=== PATIENT | female | born 1970 | race Caucasian/White ===

== ENCOUNTER → 2019-11-19 08:56 | Outpatient (CLI) | payer OTHER, SELFPAY ==
[2019-11-17 14:21] VITALS: BMI 22.7
[2019-11-19 09:00] LABS: Bacteria 0 SEEN /hpf (None Seen); Mucous, Urine 0 SEEN /hpf (<or=2+); Red Blood Cells-Urine 0 SEEN /hpf (0-5); White Blood Cells 0 SEEN /hpf (0-5)
[2019-11-19 12:24] LABS: Absolute Lymphocyte Count 3.34 X10^3/uL (0.83-4.51); Absolute Neutrophil Count 6.9 X10^3/uL (2.0-7.7); Basophil# 0.07 X10^3/uL; Basophil% 0.6 % (0-1); Eosinophil# 0.13 X10^3/uL; Eosinophils% 1.2 % (0-5); Hematocrit 44.3 % (37-47); Lymphocyte # 3.34 X10^3/ul (4.0); Mean Corp Hgb Conc 31.6 g/dL (32-36); Mean Corpuscular Hgb 27.7 pg (27.0-32.0); Mean Corpuscular Volume 87.5 fL (81-99); Mean Platelet Vol. 11.3 fl (6.2-12.0); Monocyte# 0.64 X10^3/uL; Monocyte% 5.7 % (0-10); NRBC Flagged by Analyzer 0 % (0-5); Neutrophil # 6.93 X10^3/uL (2.7-7.7); Neutrophil % 62.2 % (47-70); Platelet Count 342 K/mm3 (150-450); RBC Distribution Width CV 13.5 % (11.6-14.6); RBC Distribution Width SD 43.3 fl (35.1-43.9); Red Blood Count 5.06 M/mm3 (4.2-5.4); White Blood Count 11.1 K/mm3 (4.4-11.0)
[2019-11-19 12:28] LABS: Color, Urine Yellow (Yellow); Glucose, Dipstick Normal (Normal); Ketone-Dipstick Negative (Negative); Leukocyte Esterase-Dipstick Negative /ul (Negative); Nitrite-Dipstick Negative (Negative); Occult Blood-Urine Negative /ul (Negative); Protein-Dipstick Negative (Negative); Urine Bilirubin Dipstick Negative (Negative); Urine Clarity Sl. Cloudy (Clear); Urine Urobilinogen Normal (Normal)
[2019-11-19 12:44] LABS: AST(SGOT) 13 U/L (15-37); Alanine Aminotransfer ALT/SGPT 23 U/L (13-56); Albumin, Serum 3.6 g/dL (3.2-5.0); Alkaline Phosphatase 70 U/L (45-117); Anion Gap 4 (5-15); BUN 10 mg/dL (7-18); BUN/Creat Ratio 14.3 RATIO (10-20); Calcium,Total 8.5 mg/dL (8.5-10.1); Chloride 107 mmol/L (98-107); EST Glomerular Filtration Rate 94 mL/min (>60); Est Glom Filt Rate - Afr Amer 114 mL/min (>60); Globulin 3.5 g/dL (2.2-4.2); Glucose 82 mg/dL (74-106); Potassium 3.9 mmol/L (3.5-5.1); Protein, Total 7.1 g/dL (6.4-8.2); Sodium Level 138 mmol/L (136-145)
[2019-11-19 12:54] LABS: Squamous Epithelial Cells - UA 0-5 SEEN /hpf (5-10)
== END ==
LOC: BIMLAB 08:58
PROVIDERS: PCP Internal Medicine; Referring Provider Internal Medicine; Visit Provider Internal Medicine
DX: N32.89 Other specified disorders of bladder (principal)
CPT/HCPCS: 36415; 80053; 81001; 85025

== ENCOUNTER → 2019-11-23 10:19 | Outpatient (CLI) | payer OTHER, SELFPAY ==
[2019-11-17 14:21] VITALS: BMI 22.7
--- NOTE | 2019-11-23 10:20 | US_ITS ---
STUDY: SUPERFICIAL ULTRASOUND - ANTERIOR NECK. REASON FOR EXAM: Female, 49 years old. LUMP ANTERIOR MID NECK TECHNIQUE: A superficial ultrasound was performed with real-time and static chambers-scale imaging. COMPARISON: None. FINDINGS: The palpable area mildly corresponds to a 2.2 cm x 1.5 cm x 0.8 cm cyst with septations within it superior to the thyroid gland in the midline. This may represent a thyroglossal cyst. US/Head/Neck Soft Tissue IMPRESSION: 2.2 cm x 1.5 cm x 0.8 cm cyst with low-level echoes within it as well as septations. A thyroglossal cyst should be ruled out. Electronically Signed: Israel Rivera, at 12:10 EST , Service support ,
== END ==
PROVIDERS: PCP Internal Medicine; Referring Provider Internal Medicine; Visit Provider Internal Medicine
DX: R22.1 Localized swelling, mass and lump, neck (principal)
CPT/HCPCS: 76536

== ENCOUNTER → 2019-12-01 08:23 | Outpatient (CLI) | payer OTHER, SELFPAY ==
[2019-11-17 14:21] VITALS: BMI 22.7
--- NOTE | 2019-12-01 08:29 | CT_ITS ---
STUDY: CT ABDOMEN AND PELVIS WITHOUT CONTRAST REASON FOR EXAM: Female, 49 years old. BILAT FLANK PAIN WITH URINARY URGENCY. PRIOR APPY, PARTIAL HYSTERECTOMY, LITHOTRIPSY AND BASKET RETRIEVAL OF KIDNEY STONES RADIATION DOSAGE (If Supplied By Facility): CTDIvol = ( 6.04 ) mGy, DLP = ( 279.35 ) mGycm TECHNIQUE: Transaxial images were obtained from the dome of the diaphragm to the symphysis pubis without oral contrast, and without intravenous contrast. Sagittal and coronal images were reconstructed. Individualized dose optimization techniques were used for this CT. COMPARISON: None. FINDINGS: The visualized lung bases are unremarkable. The visualized portions of the heart are within normal limits. Normal liver. There are multiple gallstones. Normal spleen. Normal pancreas. Normal bilateral adrenal glands. There is a 3.2 mm nonobstructive calculus in the upper pole calyx of the right kidney. A 3 mm calculus is also seen in the posterior mid calyx as well as a 5 mm nonobstructive calculus in the anterior midportion of the right kidney. There are 2 nonobstructive 5 mm calculi in the lower pole calyx of the right kidney as well. There is a 5.5 mm calculus at the right ureterovesical junction. Normal left kidney. There is a small hiatal hernia. Normal small intestine. There is evidence of a prior right hemicolectomy. Anastomotic site is visualized. Scattered sigmoid diverticula. There are surgical clips in the region of the appendix consistent with a prior appendectomy. Normal abdominal aorta. Normal inferior vena cava. Normal retroperitoneum. Normal urinary bladder. There is absence of the uterus consistent with a prior hysterectomy. Normal abdominal wall. Normal osseous structures. CT/Abdomen/Pelvis without Cont IMPRESSION: 5.5 mm calculus at the right ureterovesical junction causing right sided ureteral obstruction. Multiple nonobstructive right intrarenal calculi. Prior right hemicolectomy with anastomosis. Electronically Signed: Israel Rivera, at 9:28 EST , Service support ,
== END ==
PROVIDERS: PCP Internal Medicine; Referring Provider Urology; Visit Provider Urology
DX: R10.9 Unspecified abdominal pain (principal)
CPT/HCPCS: 74176

== ENCOUNTER 2019-12-08 09:06 | Day surgery (SDC) | payer OTHER, SELFPAY ==
[2019-11-17 14:21] VITALS: BMI 22.7
[2019-12-08 09:15] VITALS: BP 102/62; PULSE 69; RESP 16; TEMP 37.1; O2SAT 98; BMI 23.6
[2019-12-08] MEDS: Lactated Ringers 1,000 ML 100 ML IV (10:00)
--- NOTE | 2019-12-08 10:33 | DCINST_ITS ---
Discharge Diet: No Restrictions Discharge Activity: May not drive while taking narcotic pain medications. Call your doctor if you observe: Fever of 101 or Higher, Inability to urinate, Inability to have a bowel movement, Calf discomfort, Uncontrolled pain Allergies/Adverse Reactions: Allergies Sulfa (Sulfonamide Antibiotics) Allergy (Verified 12/04/19 13:10) Itching Medications to take at Discharge Oxycodone HCl/Acetaminophen [Percocet 5-325 mg Tablet] 1 ea PO Q6H 12/04/19 Tamsulosin HCl [Flomax] 0.4 mg PO DAILY 12/04/19 Primary Care Physician: Jacki Larose MD [Primary Care Provider] - Test Results: Test results from this visit will be discussed in further detail at your follow- up appointment, if applicable. Please Follow Up With: Zuleima Salcedo MD When: call office for appt Proposed Discharge Date: 12/08/19
--- NOTE | 2019-12-08 10:34 | OP.PCM_ITS ---
Problem List (1) Right ureteral calculus Status: Acute (2) Right renal stone Status: Acute (3) Hydronephrosis, right Status: Acute Report of Operation Date of Procedure: 12/08/19 Pre-Operative Diagnosis: right ureteral and right renal calculus with hydronephrosis Post-Operative Diagnosis: same Surgery/Procedure Performed:: cystoscopy, right ureteroscopy, holmium laser lithotripsy and right ureteral stent insertion Type of Anesthesia:: General Description of Procedure: The patient is a 49-year-old female who presented to the office with lower urinary tract symptoms. On evaluation she was identified with a right distal ureteral calculus, with hydronephrosis. After discussing risks, benefits and alternatives, she agreed to proceed with surgical intervention with laser lithotripsy and a ureteral stent insertion. Informed consent was obtained. The patient was taken to the operating room and placed on the operating room table. Anesthesia monitored the head, neck, airway, IV access and vital signs throughout the case. Once anesthesia was appropriately administered, the patient was placed into dorsal lithotomy position and was prepped and draped in usual sterile fashion. A cystourethroscopy revealed no mucosal abnormalities including erythema, mass or ulceration. The ureteral orifices were located on the correct area of the bladder and the trigone. The right ureteral orifice was intubated with a 0.035 Glidewire. Semirigid ureteroscopy was then performed which revealed an approximately 8 mm stone in the distal right ureter. The stone was lasered into small fragments which then were blown into the urinary bladder with fluid. A second Glidewire was placed. The flexible ureteroscope was then passed over this wire into the renal pelvis. Only one small stone fragment was identified in the kidney and it was still attached to the calyx. At this time the ureteroscope was removed and using the indwelling Glidewire, a 6 [place] 22 cm double-J stent was inserted with good curling in the renal pelvis as well as in the urinary bladder. The bladder was then emptied and the case was terminated. The patient tolerated the procedure well without complication. Taken to the recovery room in good condition. Grafts/Implants Used: 6x22Fr JJ ureteral stent - Complications none - Admit VTE Documentation VTE Present on Admission: Yes VTE Mechan Device Prophylaxis: SCD's VTE Pharm Prophylaxis ordered?: No Reason prophylaxis not ordered:: Treatment Not Indicated
[2019-12-08] MEDS: Cefazolin 2 GM in 0.9% Normal Saline 100 ML IV (10:46)
[2019-12-08 11:30] VITALS: BP 102/62; BP 105/83; PULSE 76; RESP 16; TEMP 36.6; O2SAT 97
[2019-12-08 11:45] VITALS: BP 102/62; BP 115/58; PULSE 73; RESP 16; O2SAT 98
[2019-12-08 12:00] VITALS: BP 102/62; BP 102/64; PULSE 72; RESP 16; O2SAT 96
[2019-12-08 12:04] VITALS: BP 102/62; BP 105/66; PULSE 65; RESP 16; TEMP 37.2; O2SAT 97
[2019-12-08] MEDS: Acetaminophen 325 MG Tablet PO (12:41)
[2019-12-08] MEDS: oxyCODONE 5 MG Tablet PO (12:41)
[2019-12-08 13:28] VITALS: BP 102/62; BP 115/63; PULSE 68; RESP 16; TEMP 37; O2SAT 98
== END 2019-12-08 13:31 | disposition home or self-care (01) ==
LOC: SDC 09:07 → AC 09:12
PROVIDERS: PCP Internal Medicine; Referring Provider Urology; Visit Provider Urology
PROC: 0TJ98ZZ Inspection of Ureter, Via Natural or Artificial Opening Endoscopic (ICD-10-PCS; CPT 52352; principal; 2019-12-08 10:30)
DX: N13.2 Hydronephrosis with renal and ureteral calculous obstruction (principal); E28.2 Polycystic ovarian syndrome; Z87.442 Personal history of urinary calculi; F17.200 Nicotine dependence, unspecified, uncomplicated
CPT/HCPCS: 52356; 76000; J7120; C1769; C2625; J2405

== ENCOUNTER → 2019-12-15 17:26 | Outpatient (CLI) | payer OTHER, SELFPAY ==
[2019-12-08 09:15] VITALS: BMI 23.6
[2019-12-15 09:35] VITALS: BMI 23.6
--- NOTE | 2019-12-15 17:29 | CT_ITS ---
STUDY: CT SOFT TISSUE NECK WITH CONTRAST REASON FOR EXAM: Female, 49 years old. Neck mass? R/O THYROGLOSSAL CYST FROM US 11/23/19. FEELS LIKE HAS GUM IN THROAT RADIATION DOSAGE (If Supplied By Facility): CTDIvol = ( 14.99 ) mGy, DLP = ( 411.64 ) mGycm TECHNIQUE: The patient was scanned in a multi-detector CT scanner. High resolution transaxial imaging was performed following intravenous administration of IV 75mL Isovue-300. Sagittal and coronal images were reconstructed. Individualized dose optimization techniques were used for this CT. COMPARISON: Previous thyroid ultrasound obtained on 11/23/2019 FINDINGS: Normal bilateral parotid glands. Normal buccal and wig sales consultant space the parapharyngeal space is normal carotid space and visceral space are normal Normal bilateral sublingual and submandibular glands and spaces. Normal visualized nasopharynx. Normal retropharyngeal space. Normal perivertebral space. Normal visualized bilateral faucial tonsils. The visualized tongue, tongue base and oropharynx are normal. The visualized cervical lymph nodes (levels I-) are within normal size limits, and maintain normal morphology. There is a midline cystic appearing structure noted extending off the base of the tongue posterior to the hyoid bone and extending inferior to the hyoid bone in the midline anterior to the between the anterior strap muscles of the neck there is a midline cystic structure is anterior to the larynx and its inferior extent contains some internal septations. This is consistent with a thyroglossal duct cyst which measures about 1 cm in maximal AP dimension and 1.5 cm maximum transverse dimension at the level hyoid bone. There is no abnormal contrast enhancement. Normal epiglottis, bilateral vallecula and hypopharynx. The pre-epiglottic and paraglottic adipose spaces are normal. Normal visualized bilateral piriform sinuses, aryepiglottic folds, vocal cords, and arytenoid-cricoid articulations. Normal subglottic trachea. Normal bilateral lobes of the thyroid gland. Normal visualized pulmonary apices. Normal visualized paranasal sinuses. Normal visualized cervical spine. 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
== END ==
PROVIDERS: PCP Internal Medicine; Referring Provider Otolaryngology; Visit Provider Otolaryngology
DX: R22.1 Localized swelling, mass and lump, neck (principal)
CPT/HCPCS: 70491; Q9967

== ENCOUNTER → 2020-06-28 11:55 | Outpatient (CLI) | payer OTHER, SELFPAY ==
[2020-06-28 11:22] VITALS: BMI 22.8
[2020-06-28 16:52] LABS: T4 Free Direct 0.84 ng/dL (0.76-1.46); Thyroid Stim Hormone (TSH) 1.01 uIU/mL (0.358-3.74)
[2020-06-28 19:56] LABS: Xtra Tube EP Lab EXTRA TUBE
== END ==
PROVIDERS: PCP Internal Medicine; Visit Provider Internal Medicine
DX: F32.9 Major depressive disorder, single episode, unspecified (principal); F41.9 Anxiety disorder, unspecified
CPT/HCPCS: 36415; 84439; 84443

== ENCOUNTER 2020-07-11 17:30 | Outpatient (RCR) | payer OTHER, SELFPAY ==
[2020-06-10 13:16] VITALS: BMI 23.6
--- NOTE | 2020-06-13 18:04 | HP.PTEVAL_ITS ---
Patient's Visit Information CRISTIAN FROST is a 50 year old F referred to Physical Therapy by BURAK Roy with a diagnosis of L shoulder pain. Date of Evaluation: 06/13/20 Physical Therapist: Chan Rajan, PT, ATC - Visit Plan Frequency: 2-3x /Week Duration: 4 Weeks Plan: L shoulder strengthening (rot cuff), scap stab ex's, UBE, and HEP - Subjective Pt reports her L shoulder has been sore for 6 mos. Pt reports she has been having sig sleep difficulty as a result. 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 pt notes she has pain that is on the ant portion of her L shoulder and travels throughout the biceps region. Pt is R hand dom. Pt was issued a steroid pack which has helped a lot. Pt notes she still has sleep difficulty secondary to pain. No tingling or numbness in L UE. 1/10 pain at rest, 9/10 pain at worst (prior to the steroids) - Pain L shoulder Pain Intensity (Out of 10): 1 Pain Intensity Range: 9 - Objective Neuro: B UE sensation is WNL to light touch. B bicepital reflex= 2/3. Palpation: Pt is very tender along the LHB tendon and supraspinatus tendon. No obvious deformity. ROM: R shoulder flex= 175, abd= 170, ER= 80, IR= WNL; L shoulder flex= 165, abd= 155, ER= 65, IR min limited. MMT: R shoulder 5/5 throughout. L shoulder is 4/5 and painful with all testing. Special testing: Pos HK and empty can sign - Goals Goal 1:: Decrease L shoulder pain x 50% to aid with sleep Goal Time Frame: 4-6 Weeks Goal 2:: Increase L shoulder flex and abd ROM x 10-15 degrees to aid with overhead lifting Goal Time Frame: 4-6 Weeks Goal 3:: Increase L shoulder strength x 1 grade to aid with work requirements Goal Time Frame: 4-6 Weeks Goal 4:: I with HEP Goal Time Frame: 4-6 Weeks - Rehabilitation Potential Physical Therapy Diagnosis: L shoulder pain, weakness, and limited ROM secondary to L shoulder impingement syndrome Rehabilitation Potential: Good - Anticipated Interventions Patient/Client Instruction: Educate patient on: Condition, Plan of Care For the Purpose of:: To improve self management Therapeutic Exercise to Include: Strength training, Endurance training, Postural training, Passive ROM, Active ROM, Scapular Strength/Stabilization For the Purpose of:: To decrease pain, To increase ROM, To improve muscle performance and motor function Cryotherapy (ice pack, ice massage): Yes For the Purpose of:: To decrease pain Thank you for the opportunity to evaluate your patient. For Medicare and Medicare HMO plans, please review the plan of care and approve it. It will need to be FAXED BACK to us at [phone] for Medicare purposes. For Medicare only, by signing this I certify the plan of care. Please let me know if there are questions or concerns regarding this plan of care. Physician Signature: Date:
--- NOTE | 2020-07-11 17:55 | HP.PTREVAL ---
BURAK Roy, It has been my pleasure to treat CRISTIAN FROST over the last 8 visits for L shoulder pain. Please see the progress note below for an update on the physical therapy plan of care! Subjective: I am much better at this time Objective/Function: L shoulder pain 10/30. L shoulder MMT: Abd= 4/. All other measurements /5 throughout. L shoulder ROM: flex= 178, abd= 178, ER= 82. Pt is I with HEP. Rx goals achieved Plan Plan: Discharge or cont in 4 weeks Goals Goal 1:: Decrease L shoulder pain x 50% to aid with sleep Goal Time Frame: 4-6 Weeks Goal Progress: Progressing Goal 2:: Increase L shoulder flex and abd ROM x 10-15 degrees to aid with overhead lifting Goal Time Frame: 4-6 Weeks Goal Progress: Goal Met Goal 3:: Increase L shoulder strength x 1 grade to aid with work requirements Goal Time Frame: 4-6 Weeks Goal Progress: Goal Met Goal 4:: I with HEP Goal Time Frame: 4-6 Weeks Goal Progress: Goal Met Anticipated Interventions Patient/Client Instruction: Educate patient on: Condition, Plan of Care For the Purpose of:: To improve self management Therapeutic Exercise to Include: Strength training, Endurance training, Postural training, Passive ROM, Active ROM, Scapular Strength/Stabilization For the Purpose of:: To decrease pain, To increase ROM, To improve muscle performance and motor function Cryotherapy (ice pack, ice massage): Yes For the Purpose of:: To decrease pain Please do not hesitate to contact me at [phone] by phone or if you have questions or concerns regarding this new plan of care! Sincerely, Chan Rajan, PT, ATC
--- NOTE | 2020-08-29 15:16 | HP.PT.NRP ---
CRISTIAN FROST was seen in my office for initial evaluation on 06/13/20. The following Plan of Care was established for this patient: Initial Frequency: 2-3x /Week Initial Duration: 4 Weeks Patient/Client Instruction: Educate patient on: Condition, Plan of Care For the Purpose of:: To improve self management Therapeutic Exercise to Include: Strength training, Endurance training, Postural training, Passive ROM, Active ROM, Scapular Strength/Stabilization For the Purpose of:: To decrease pain, To increase ROM, To improve muscle performance and motor function Cryotherapy (ice pack, ice massage): Yes For the Purpose of:: To decrease pain This patient was last seen in our office . Pertinent comments regarding their Physical therapy will appear below: Pt was treated for L shoulder pain for 8 PT visits through the date of 07/11/20. Pt has not returned through todays date and is discontinued at this time. At this point I will be discontinuing this patient from physical therapy. I would be happy to see this patient again in the future if found appropriate by the physician. Thank you! Chan Rajan, PT, ATC
== END 2020-07-11 19:00 | disposition home or self-care (01) ==
LOC: PT 17:30
PROVIDERS: PCP Internal Medicine; Referring Provider Physician Assistant Surgical; Visit Provider Physician Assistant Surgical
DX: M75.82 Other shoulder lesions, left shoulder (principal)
CPT/HCPCS: 97110; 97161; 97164

== ENCOUNTER → 2021-03-28 09:38 | Outpatient (CLI) | payer OTHER, SELFPAY ==
[2021-02-02 10:13] VITALS: BMI 23.2
== END ==
PROVIDERS: PCP Internal Medicine; Referring Provider Internal Medicine; Visit Provider Internal Medicine
DX: J02.9 Acute pharyngitis, unspecified (principal); R05 Cough
CPT/HCPCS: 87635; U0005; U0003

== ENCOUNTER → 2021-05-11 15:34 | Outpatient (CLI) | payer OTHER, SELFPAY ==
[2021-05-11 15:05] VITALS: BMI 23.2
[2021-05-11 16:39] LABS: Absolute Lymphocyte Count 4.57 X10^3/uL (0.83-4.51); Absolute Neutrophil Count 5.5 X10^3/uL (2.0-7.7); Basophil# 0.08 X10^3/uL; Basophil% 0.7 % (0-1); Eosinophil# 0.18 X10^3/uL; Eosinophils% 1.6 % (0-5); Hematocrit 42.5 % (37-47); Hemoglobin 13.7 g/dL (12.0-15.0); Lymphocyte # 4.57 X10^3/ul (0.83-4.51); Lymphocyte % 41.2 % (19-41); Mean Corp Hgb Conc 32.2 g/dL (32-36); Mean Corpuscular Hgb 28.2 pg (27.0-32.0); Mean Corpuscular Volume 87.4 fL (81-99); Mean Platelet Vol. 11.2 fl (6.2-12.0); Monocyte# 0.74 X10^3/uL; Monocyte% 6.7 % (0-10); NRBC Flagged by Analyzer 0 % (0-5); Neutrophil % 49.5 % (47-70); Platelet Count 327 K/mm3 (150-450); RBC Distribution Width CV 13.6 % (11.6-14.6); RBC Distribution Width SD 43.6 fl (35.1-43.9); Red Blood Count 4.86 M/mm3 (4.2-5.4); White Blood Count 11.1 K/mm3 (4.4-11.0)
[2021-05-11 16:40] LABS: POSITIVE COUNT NO; POSITIVE DIFFERENTIAL NO; POSITIVE MORPHOLOGY NO
[2021-05-11 17:12] LABS: ALB/GLOB Ratio 1.1 RATIO (0.9-2.4); AST(SGOT) 9 U/L (15-37); Alanine Aminotransfer ALT/SGPT 16 U/L (13-56); Albumin, Serum 3.5 g/dL (3.2-5.0); Alkaline Phosphatase 74 U/L (45-117); Anion Gap 7 (5-15); BUN 15 mg/dL (7-18); BUN/Creat Ratio 21.8 RATIO (10-20); Calcium,Total 8.3 mg/dL (8.5-10.1); Chloride 107 mmol/L (98-107); Cholesterol 131 mg/dL (200); Creatinine, Serum 0.69 mg/dL (0.55-1.02); EST Glomerular Filtration Rate 95 mL/min (>60); Est Glom Filt Rate - Afr Amer 115 mL/min (>60); Globulin 3.2 g/dL (2.2-4.2); Glucose 113 mg/dL (74-106); High Density Lipoprotein 50 mg/dL; Potassium 3.5 mmol/L (3.5-5.1); Protein, Total 6.7 g/dL (6.4-8.2); Sodium Level 139 mmol/L (136-145); Triglycerides 137 mg/dL; Very Low Density Lipoprotein 27 mg/dL (5-40)
== END ==
PROVIDERS: PCP Internal Medicine; Referring Provider Internal Medicine; Visit Provider Internal Medicine
DX: Z00.00 Encounter for general adult medical examination without abnormal findings (principal)
CPT/HCPCS: 36415; 80053; 80061; 85025

== ENCOUNTER → 2021-06-10 | Outpatient (CLI) | payer OTHER, SELFPAY | END | disposition home or self-care (01) | LOC: LABSPEC 06-29 13:37 | PROVIDERS: PCP Internal Medicine; Visit Provider Nurse Practitioner Family | DX: Z20.822 Contact with and (suspected) exposure to COVID-19 (principal) | CPT/HCPCS: 87635; U0005; U0003 ==

== ENCOUNTER → 2021-08-21 | Outpatient (CLI) | payer OTHER, SELFPAY | END | disposition home or self-care (01) | LOC: LABSPEC 10:07 | PROVIDERS: PCP Internal Medicine; Referring Provider Physician Assistant Surgical; Visit Provider Physician Assistant Surgical | DX: Z11.52 Encounter for screening for COVID-19 (principal) | CPT/HCPCS: 87635; U0005; U0003 ==

== ENCOUNTER 2021-10-23 18:54 | Outpatient (CLI) | payer OTHER, SELFPAY ==
--- NOTE | 2021-10-23 19:09 | CT_ITS ---
We are attempting to reach an attending provider to discuss findings. An addendum with communication details will be sent when the communication is complete. STUDY: CT ABDOMEN AND PELVIS WITHOUT CONTRAST REASON FOR EXAM: Female, 51 years old. KIDNEY STONE RIGHT SIDE RADIATION DOSAGE (If Supplied By Facility): CTDIvol = ( 6.06 ) mGy, DLP = ( 333.92 ) mGycm TECHNIQUE: Transaxial images were obtained from the dome of the diaphragm to the symphysis pubis without oral contrast, and without intravenous contrast. Sagittal and coronal images were reconstructed. Individualized dose optimization techniques were used for this CT. COMPARISON: December 01, 2019 CT abdomen and pelvis FINDINGS: The visualized lung bases are unremarkable. The visualized portions of the heart are within normal limits. Normal liver. There is a partially contracted, 6 mm thick walled appearing gallbladder surrounding multiple gallstones. Normal spleen. Normal pancreas. There is a slightly greater thickened appearance of the left greater than right adrenal gland. There is a 3.9 mm stone right kidney. There is a stone measuring 2.3 mm. There are punctate stones in the right kidney. There is no hydronephrosis. There is minimal right pelviectasis. There are no visualized stones course the right ureter. Normal left kidney. There is a distended fluid-filled appearance of the stomach. There is mild distention of the proximal small bowel. There is an air-fluid level within the colon the cecum to the splenic flexure. This postoperative change within the cecum. There is non-visualization of the appendix. Normal abdominal aorta. Normal inferior vena cava. There are numerous right-sided midline mesenteric lymph nodes measuring up to 1.8 and 1.5 cm. Normal urinary bladder. Normal visualized uterus. There is a small umbilical hernia containing fat. There is degenerative change especially L5-S1 with facet arthropathy moderate left neural foramina narrowing. CT/Abdomen/Pelvis without Cont IMPRESSION: Abnormally thick walled appearing gallbladder with visualized gallstones. Consider partial contraction, acute or chronic cholecystitis could have this appearance. Recommend consideration for follow-up ultrasound. Distended stomach and proximal small bowel with air-fluid levels; consider possible pattern of enterocolitis or gastroenteritis. Postoperative change in the ascending colon Nonvisualization of the appendix Reactive potentially atypical mesenteric lymph nodes. Slightly interval greater size of the left adrenal gland could consider adrenal hyperplasia. Although thought to BE less likely, potentially neoplastic development could have this appearance. Electronically Signed: Kelli Calderon MD at 5:50 EST Tel , Service support ,
== END 2021-10-23 23:59 | disposition short-term general hospital (02) ==
LOC: CT 19:05
PROVIDERS: PCP Internal Medicine; Visit Provider Urology
DX: N20.0 Calculus of kidney (principal); R10.30 Lower abdominal pain, unspecified
CPT/HCPCS: 74176

== ENCOUNTER 2021-10-30 07:20 | Outpatient (CLI) | payer OTHER, SELFPAY ==
--- NOTE | 2021-10-30 07:24 | US_ITS ---
STUDY: ABDOMINAL ULTRASOUND - RIGHT UPPER QUADRANT REASON FOR VISIT: Female, 51 years old GALLSTONES TECHNIQUE: Ultrasound evaluation of the right upper quadrant was performed with real-time and static chambers-scale imaging. TECHNICAL QUALITY: Adequate. COMPARISON: None. FINDINGS: Liver: The liver measures 14.2 cm. There is normal echogenicity of the liver. The bile ducts are within normal limits. There is hepatic color flow. The direction of portal flow is hepatopetal. There is a 1.1 cm x 1 cm x 0.8 cm cyst in the right lobe adjacent to the gallbladder fossa. Gallbladder: Normal distended gallbladder. The gallbladder wall is thickened and measures 6 mm. There is a negative sonographic Jones''s sign. There is pericholecystic fluid. There are multiple echogenic structures within the gallbladder, consistent with multiple gallstones. Common Bile Duct (C.B.D.): The common bile duct measures 2 mm. Pancreas: Normal size of the head, body and tail of the pancreas. There is normal echogenicity of the pancreas. There is no demonstrated pancreatic mass or cyst. Right Kidney: Normal size of the right kidney. The right kidney measures 10.5 cm x 5.5 cm x 3.9 cm. Normal renal cortex. The right cortex measures 1.6 cm. There is no demonstrated renal mass or cyst. There is no right hydronephrosis. Incidental note is made of a small nonobstructive right intrarenal calculus measuring 4 mm x 4 mm x 5 mm US/Gallbladder IMPRESSION: Multiple gallstones. Thickened gallbladder wall with a small amount of pericholecystic fluid. Small hepatic cyst. Electronically Signed: Israel Rivera MD at 10:26 EST , Service support ,
== END 2021-10-30 23:59 | disposition short-term general hospital (02) ==
LOC: US 07:22
PROVIDERS: PCP Internal Medicine; Referring Provider Urology; Visit Provider Urology
DX: K80.20 Calculus of gallbladder without cholecystitis without obstruction (principal)
CPT/HCPCS: 76705

== ENCOUNTER 2021-11-01 11:26 | Outpatient (CLI) | payer OTHER, SELFPAY ==
[2021-11-01 11:48] LABS: Absolute Lymphocyte Count 5.95 X10^3/uL (0.83-4.51); Absolute Neutrophil Count 5.8 X10^3/uL (2.0-7.7); Basophil% 0.8 % (0-1); Eosinophil# 0.15 X10^3/uL; Eosinophils% 1.2 % (0-5); Hematocrit 43.3 % (37-47); Lymphocyte # 5.95 X10^3/ul (0.83-4.51); Lymphocyte % 46.3 % (19-41); Mean Corp Hgb Conc 32.3 g/dL (32-36); Mean Corpuscular Hgb 28.1 pg (27.0-32.0); Mean Corpuscular Volume 86.9 fL (81-99); Mean Platelet Vol. 10.6 fl (6.2-12.0); Monocyte# 0.84 X10^3/uL; Monocyte% 6.5 % (0-10); NRBC Flagged by Analyzer 0 % (0-5); Neutrophil # 5.77 X10^3/uL (2.7-7.7); Neutrophil % 44.9 % (47-70); POSITIVE DIFFERENTIAL YES; Platelet Count 321 K/mm3 (150-450); RBC Distribution Width CV 13.8 % (11.6-14.6); RBC Distribution Width SD 43.9 fl (35.1-43.9); Red Blood Count 4.98 M/mm3 (4.2-5.4); White Blood Count 12.9 K/mm3 (4.4-11.0)
[2021-11-01 11:49] LABS: Differential Indicated SCAN CRITERIA MET
[2021-11-01 12:10] LABS: ALB/GLOB Ratio 1.1 RATIO (0.9-2.4); AST(SGOT) 14 U/L (15-37); Alanine Aminotransfer ALT/SGPT 19 U/L (13-56); Albumin, Serum 4.1 g/dL (3.2-5.0); Alkaline Phosphatase 82 U/L (45-117); Anion Gap 2 (5-15); BUN 12 mg/dL (7-18); BUN/Creat Ratio 16.9 RATIO (10-20); Calcium,Total 9.1 mg/dL (8.5-10.1); Chloride 108 mmol/L (98-107); Creatinine, Serum 0.71 mg/dL (0.55-1.02); Differential Comment SCANNED; EST Glomerular Filtration Rate 91 mL/min (>60); Est Glom Filt Rate - Afr Amer 111 mL/min (>60); Globulin 3.7 g/dL (2.2-4.2); Glucose 79 mg/dL (74-106); Potassium 4.1 mmol/L (3.5-5.1); Protein, Total 7.8 g/dL (6.4-8.2); Sodium Level 139 mmol/L (136-145)
== END 2021-11-01 23:59 | disposition short-term general hospital (02) ==
LOC: PAVLAB 11:27
PROVIDERS: PCP Internal Medicine; Referring Provider Surgery; Visit Provider Surgery
DX: K80.20 Calculus of gallbladder without cholecystitis without obstruction (principal)
CPT/HCPCS: 36415; 80053; 85025

== ENCOUNTER 2021-11-07 06:02 | Day surgery (SDC) | payer OTHER, SELFPAY ==
[2021-11-07] VITALS (12 sets, daily range): BP systolic 93–132; BP diastolic 37–72; PULSE 65–93; RESP 14–16; TEMP 36.1–36.6; O2SAT 92–98; BMI 23.0
--- NOTE | 2021-11-07 06:08 | EKG12_ITS ---
Test Reason : PRE OP Blood Pressure : / mmHG Vent. Rate : 060 BPM Atrial Rate : 060 BPM P-R Int : 112 ms QRS Dur : 088 ms QT Int : 412 ms P-R-T Axes : 022 068 059 degrees QTc Int : 412 ms Normal sinus rhythm Normal ECG When compared with ECG of 04-SEP-2013 11:21, No significant change was found Confirmed by LUIS WOOD, ORSSY ([id number]), metropolitan editor MELVIN BEYER ([id number]) on 11/09/2021 1:35:26 PM Referred By: Robe Chavez Confirmed By:ROSSY SMITH MD
[2021-11-07] MEDS: Lactated Ringers 1,000 ML 15 ML IV (06:53)
--- NOTE | 2021-11-07 07:26 | PCM.HP.BLA ---
History and Physical Date of Admission: 11/07/21 Date of Service: 11/01/21 MR#:[id number]:[id number]: CRISTIAN FROST [facility] #:[id number]:[id number] Provider:Dr. 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 Robe Chavez MD) Cholelithiasis Cough Diarrhea GI problem Heart murmur Hemorrhoids Kidney stones Limb weakness Polycystic ovaries Preventative health care Shoulder pain Sorethroat URI (upper respiratory infection) Surgical History (Updated 11/01/21 @ 10:22 by Saturday) H/O: hysterectomy History of bowel resection removal of benign abdominal mass Status post laser lithotripsy of ureteral calculus Family History Grandmother Anemia Mother Diabetes Brother Diabetes Aunt Severe allergy Unknown No problems noted. Social History Smoking Status: Current every day smoker Tobacco: How many years used: 35 alcohol intake: current alcohol intake frequency: holidays/special occasions only substance use type: does not use HPI HPI HPI: CRISTIAN FROST, is a 51 F who presents to the office today for right upper quadrant pain and abnormal CT/ultrasound imaging. They state they have a long history of kidney stones that have required multiple interventions by urology as well as a chronic history of nausea so when they developed right upper quadrant pain approximately 2 to 3 months ago the believe this was more the same and chose to ignore it. However, Mrs. Frost reports several episodes of this right upper quadrant abdominal pain?the last occurring 4 days ago and woke her out of sleep. This episode was associated with some intense nausea. The pain episode lasted 5 to 6 hours and she considered coming into the hospital, but decided against it knowing that she had already obtained imaging related to this issue and figured this would show what was needed. Pain is described as intense in the right upper quadrant, up under the ribs. She has tried to push on the area, but this does not bring about relief; some relief was brought about by a heating pad. Additional symptoms include: Moderate nausea as noted above. Symptoms are associated with eating?particularly fatty foods. She notes specific food triggers are milk, tacos, and beef products. She also states her nausea is particularly exacerbated by eggs. Patient had a CT of the abdomen pelvis on 10/23/2021 that showed a thickened gallbladder wall at 6 mm and gallstones as well as air-fluid levels in the colon and possible adrenal hyperplasia. Reflexive gallbladder ultrasound was obtained on 10/30/2021 which showed no gallstones, thickened gallbladder wall (same 6 mm measurement) normal common bile duct, and some pericholecystic fluid. At the age of 20 the patient had an exploratory surgery for a unusual intra-abdominal mass. During the surgery she recalls a softball sized mass with chambers netting of peritoneal capsule was removed. This mass was adherent to the adjacent small and large bowel so this was taken en bloc. Since this surgery, she has experienced frequent diarrhea and, consequently, hemorrhoids. The latter issue has been managed by Dr. Clayton in the [place]. She continues to be troubled by ascitic bowel movements and states earlier last year she thought she may have passed a gallstone because it turned her rectum inside out with how forcible her bowel movement was. She states this frequency of diarrhea has keeps her fatigued but also keeps her thin. She follows with Dr. Bustos of gastroenterology for her colonoscopies. She states that she is a year overdue for her next scope. Outside records were obtained in the last colonoscopy with that office was performed 12/17/2016. Patient was noted to have a widely patent ileocolic anastomosis and some internal hemorrhoids, but pathology following biopsies for rule out microscopic colitis was negative. ROS General General: Yes fatigue; No weight change, appetite, colon cancer, breast cancer or weakness HEENT HEENT: No difficulty swallowing, eye injury, eye surgery, swollen glands or hoarseness Endo Endocrine: No thyroid disease, diabetes mellitus, thyroid cancer, Hair loss, heat intolerance or cold intolerance Skin Skin: No rash or changing moles Musc Musculoskeletal: Yes back problems; No arthritis, rheumatoid arthritis, gout or joint pain Cardio Cardiovascular: Yes murmur; No pacemaker, heart disease, atrial fibrillation, high blood pressure, heart attack, heart stent, palpitations, shortness of breat with exertion or chest pain Psych Psychiatric: No depression, anxiety or hearing voices Resp Respiratory: No shortness of breath, No sleep apnea, No cough, No COPD, No asthma, No emphysema and No wheezing Gastro Gastrointestinal: Yes abdominal pain, Yes nausea or vomiting, Yes diarrhea, No constipation, No blood in stool, No acid reflux, Yes hemorrhoids, No ulcers, Yes gallbladder problem and No black,tarry stools David Hematologic: No blood thinners, No blood disorders, No bleeding, No anemia and No blood clots Neuro Neurologic: No system reviewed and no additional complaints, except as documented, No as per HPI, No abnormal gait, No abnormal hearing, No abnormal movements, No abnormal speech, No behavioral changes, No burning sensations, No confusion, No convulsions, No disequilibrium, No dizziness, No localized weakness, No frequent falls, No headache(s), No lack of coordination, No loss of vision, No memory loss, No numbness, No other visual disturbances, No radicular pain, No restless legs, No sensory deficit, No syncope, No tingling, No tremor(s), No weakness and No other Exam Const General: cooperative and anxious Orientation: alert, awake and oriented x3 Other: Exhibits pressured speech and is somewhat difficult to redirect during interview Resp Effort & Inspection: normal respiratory effort Auscultation: clear to auscultation bilaterally, no rales, no rhonchi and no wheezes Cardio Rate: regular rate Rhythm: regular rhythm Heart Sounds: S1 normal, S2 normal and no murmurs GI Inspection: non-distended, scar (Laparotomy well-healed) and visible herniation (Near umbilicus) Palpation: soft and tender periumbilically (With palpation of patient's hernia) and Jones's sign positive Assessment and Plan Assessment and Plan (1) Chronic cholecystitis with calculus: Status: Chronic Comment: This is a 51-year-old female with a complex past medical and past surgical history who presents with history, exam, and radiographic signs of chronic cholecystitis. She describes intermittent episodes of intense right upper quadrant pain associated with nausea. Surgically, the patient has a history of a large benign tumor, en bloc resection in the right upper quadrant that resulted in an enterocolonic anastomosis that resides within the right upper quadrant. At this point, patient's imaging gives no evidence of ductal obstruction as both CT and ultrasound revealed normal dimensions for the common bile duct. However, the patient has not had recent metabolic panel and I would like to assess for any biochemical evidence of ductal obstruction. Given the cholecystitis, and the patient's otherwise appropriate fitness, a laparoscopic cholecystectomy was offered. Patient is advised that she is a somewhat increased risk for this procedure given her prior surgical history. She expresses understanding and wishes to proceed as described. Plan - Dr. Robe Chavez MD: ? Laparoscopic cholecystectomy with possible intraoperative cholangiogram. ? Update patient's labs with new CMP and CBC (2) Umbilical hernia: Status: Acute Comment: Patient with with small umbilical hernia that appears to have chronically incarcerated fat. This is tender with palpation. Depending on the operative course for the patient's gallbladder, this could potentially be addressed with a primary repair during closure. Plan - Dr. Robe Chavez MD: ? Assess patient's interest in possible primary closure at the time of her gallbladder surgery (3) Chronic diarrhea: Status: Chronic Comment: Patient with a history of chronic diarrhea likely owing to an exploratory surgery at the age of 20 for a benign abdominal mass. Patient states she is overdue for surveillance colonoscopy. Her last colonoscopy records were obtained from Dr. Bustos's office and did not show any significant findings and 2017 aside from a widely patent ileocolonic anastomosis and some internal hemorrhoids. Random colon biopsies were negative for any evidence of microscopic colitis. Still, she was given recommendation for 3-year follow-up. I have informed her this could be completed through our office once we have come through the postoperative period for her gallbladder. Plan - Dr. Robe Chavez MD: ? Revisit surveillance colonoscopy following recovery from gallbladder surgery as planned above. (4) Adrenal abnormality: Status: Acute Comment: 51-year-old female with incidentally noted thickening of the left greater than right adrenal glands. This was not discussed with patient in depth during today's consultation as that discussion was dominated by concerns over possible/probable chronic cholecystitis. However, I have reviewed patient's CT imaging from November 2019 against the most recent CT from 10/23/2021 and radiology agrees that there has been interval progression of this thickening. Therefore, we will plan for biochemical evaluation following the patient's gallbladder surgery. Plan - Dr. Robe Chavez MD: ? Biochemical adrenal evaluation following gallbladder surgery Plan Details Other Orders: Orders: Comprehensive Metabolic Profil Today K80.20 CBC W/Diff, Automated Today K80.20 I have re-examined the patient. There are no clinical changes since date of exam. Patient has a few clarifying questions, but otherwise wishes to proceed as described. Therefore we will proceed with laparoscopic cholecystectomy with intraoperative cholangiogram and possible umbilical/incisional hernia repair
--- NOTE | 2021-11-07 07:30 | GALL_PTH ---
PATIENT: CRISTIAN FROST LOC: [facility] U#:[id number] AGE/SX: 51/F ROOM: RE11/07/[address]: Dr. Robe Chavez MD : 1970 BED: DIS: 11/07/2021 SPEC #: [id number] RECD: 11/07/21 09:12 STATUS: MEL SALLIE #: [id number] JUAN: 11/07/21 07:[address]: Robe Chavez DEPT: SURGICAL PATHOLOGY RECD BY: Kat Ayala ENTERED: 11/08/21 09:36 SP TYPE: [facility] DR: Dr. Jacki Larose MD Tissues: Gallbladder, NOS Procedures: Surgery Specimen Level III HEADER OPERATION: Laparoscopic cholecystectomy with IOC PRE-OP DIAGNOSIS: Chronic cholecystitis with calculus, umbilical hernia TISSUE SUBMITTED: Gallbladder MICROSCOPIC DIAGNOSIS Gallbladder, cholecystectomy: Chronic cholecystitis with Rokitansky-Aschoff sinuses and cholelithiasis. AM:nhung 11/09/2021 MICROSCOPIC DESCRIPTION Slides are reviewed. GROSS DESCRIPTION Received is one container labeled with the patient's name and designated gallbladder. The specimen consists of a gallbladder measuring 9 cm in length and up to 3 cm in diameter. The external surface is pink-harris, smooth and glistening for the most part. Focally it is granular, hemorrhagic and contains cautery artifact. The gallbladder contains green-yellow mucoid bile and multiple black, mulberry stones measuring in aggregate 2 x 2 x 0.6 cm and 0.2 to 1 cm in greatest dimension. The mucosa is bile-stained and without any mass lesions. The gallbladder wall measures up to 0.4 cm in thickness. Breastfeeding Program Coordinator sections from the gallbladder and the cystic duct are submitted in one cassette. / SJ:nhung 11/08/2021 TC:3 CPT: 19159
[2021-11-07] MEDS: Cefazolin 2 GM in 0.9% Normal Saline 100 ML IV (07:42)
--- NOTE | 2021-11-07 07:45 | RAD_ITS ---
STUDY: INTRAOPERATIVE CHOLANGIOGRAM. REASON FOR EXAM: Female, 51 years old. PAIN FLUOROSCOPY TIME (if supplied): ( 72 seconds ) minutes/seconds. A cine loop of 79 images was obtained. TECHNIQUE: Intraoperative Cholangiogram was performed by the surgeon. Imaging was submitted. COMPARISON: None. FINDINGS: The visualized intra and extrahepatic biliary ducts are unremarkable. Air bubbles are seen within the common bile duct which disappear. RAD/Cholangiogram/ O R,Initial IMPRESSION: Unremarkable intraoperative cholangiogram. Electronically Signed: Israel Rivera MD at 9:49 EST , Service support ,
--- NOTE | 2021-11-07 09:33 | OP.PCM_ITS ---
Problems Associated Problem List Diagnoses (1) Status post laparoscopic cholecystectomy: Report of Operation Date of Procedure: 11/07/21 Pre-Operative Diagnosis: 1. Chronic cholecystitis 2. Hyperbilirubinemia 3. History of exploratory laparotomy with en bloc resection of intra-abdominal mass and small and large bowel Post-Operative Diagnosis: Same Surgery/Procedure Performed:: 1. Laparoscopic cholecystectomy with i ntraoperative cholangiogram 2. Adhesiolysis Description of Surgical Findings:: ? Extensive adhesions between the omentum and anterior abdominal wall extending from the level of the falciform ligament inferiorly well into the pelvis ? Chronic cholecystitis with adhesions to the duodenum inferiorly ? Cholangiogram showing antegrade flow into the duodenum initially with air bubbles in the common bile duct and retrograde into right hepatic duct system (cystic duct was the takeoff of the right hepatic), but no filling defects. Clear opacification of the right and left hepatic ducts Surgeon: Robe Chavez bilingual executive assistant: Venita Tian Type of Anesthesia: General/Supplemental Anesthesiologist: Roberto Birch Specimen's removed: Gallbladder Estimated Blood Loss (mL): 50 Description of Procedure: After proper identification in the preoperative holding area, the patient was brought to the operating room where she was positioned supine on the operating room table. Preoperative antibiotics were administered and SCDs were applied. General anesthesia was then induced. Patient's abdomen was prepped and draped in usual sterile fashion. A formal timeout was conducted to confirm both patient and the procedure. Procedure was begun with a subxiphoid Mijares entry given the patient's prior surgical history. Fortunately there were no adhesions directly deep to this point and we are able to clearly visualize the the peritoneal cavity. A standard 12 mm trocar was placed through this point and pneumoperitoneum was established at 15 mmHg. There were extensive adhesions between the omentum and several loops of small bowel in the anterior abdominal wall. However the right upper quadrant was relatively avoided these adhesions and our two 5 mm ports were placed in the right upper quadrant under laparoscopic visualization to facilitate adhesiolysis. From these two 5 mm ports, the adhesions to the anterior abdominal wall were taken down with a combination of sharp dissection, blunt dissection, and sealed as necessary with laparoscopic LigaSure. These adhesions were to be particularly dense around the patient's prior laparotomy near her umbilicus, however, I did not find evidence of a fascial defect at this point. These adhesions were cleared, I chose to use the patient's old laparotomy incision and made a small umbilical incision at this point to facilitate placement of our final 10 mm trocar. The camera was placed through this port and the gallbladder was visualized with a contracted, whitish appearance with suggestion of chronic inflammation. The gallbladder fundus was then grasped and elevated cephalad. Then, using careful dissection the peritoneum was opened and the structures of the hepatocystic triangle were delineated. Once the critical view of safety was obtained, a single clip was placed across the cystic duct and a small ductotomy was made. I milked back a few small stones from the distal cystic duct via this opening and remove the stones from the peritoneal cavity. A cholangiocatheter was fed into the proximal segment of the cystic duct. A cholangiogram was then obtained showing a rather long cystic duct takeoff from the right hepatic duct flowing into a common bile duct with unobstructed antegrade flow of contrast into the duodenum. Initially, there were number of bubbles in the right hepatic and common bile ducts, but these cleared with additional flushing. There was also retrograde flow through the common hepatic duct into the right and left hepatic ducts. A total of 30 mL of contrast was required for this procedure. With this result, the cystic duct was triply clipped and sharply divided. The same process was used for the cystic artery. The gallbladder was then removed from the gallbladder fossa with the use of electrocautery. The gallbladder was placed in an Endo Catch bag and removed from the peritoneum. Some residual fluid/bile in Morison's pouch was suctioned free of the peritoneum. Hemostasis was confirmed in the gallbladder fossa. Pneumoperitoneum was evacuated and the fascia of the 12 mm port sites was closed with 0 Vicryl a [id number] fashion. There is initially still a small opening of the umbilical incision and so a second interrupted stitch was placed with good apposition of the fascial edges. The skin of each port site was then closed in subcuticular fashion using 4-0 Monocryl. Steri-Strips and bandages were applied as dressings. Patient tolerated the procedure well without any apparent complications. On emergence from their anesthetic the patient was taken to PACU for ongoing recovery. Procedures Digestive [id number]-[id number]: [id number] Laparo cholecystectomy/graph
--- NOTE | 2021-11-07 09:36 | EX.PCM.DISCH ---
Discharge Instructions Diet Discharge Diet: Low fat / Low cholesterol Activity Discharge Activity: May Not Drive (No driving while using narcotic pain medication) Ice area for (Minutes): 20 Lifting Restrictions: No lifting greater than 15 pounds for 2 weeks after surgery Dressing / Incision Call your doctor if your incision/area has: Continuous Slow Oozing, Increased Redness, Foul Smelling Discharge and Swelling at the incision site Call your doctor if you observe: Fever of 101 or Higher Suture Line Care: Avoid Pulling/Pushing Remove Dressing in: 2 days (Please leave Steri-Strips intact until they fall off spontaneously or are taken off at your follow-up visit) Follow Up Care Please Follow Up With: Robe Chavez MD When: 10 days postop Test Results: Test results from this visit will be discussed in further detail at your follow-up appointment, if applicable. Discharge Plan Admission Primary Reason for Your Visit: Cholecystectomy Attending Provider: Robe Chavez Primary Care Provider: Jacki Larose Instructions Patient Instructions: After Gallbladder Surgery Discharge Orders/Prescriptions Prescriptions: New oxycodone 5 mg tablet 5 mg PO Q6H PRN (Reason: pain) 7 Days Qty: 20 RF: 0 Continued acetaminophen [Tylenol] 325 mg capsule 325 mg PO ONCE PRN (Reason: Pain) RF: 0 cholecalciferol (vitamin D3) 50 mcg (2,000 unit) capsule 50 mcg PO DAILY Qty: 90 RF: 3 cholestyramine (with sugar) 4 gram powder 4 g PO BID Qty: 378 RF: 2 Referrals / Follow Up: Jacki Larose MD [Primary Care Provider] - Disposition Disposition (needs filled in before D/C Order can be placed): Home, Self Care
[2021-11-07] MEDS: oxyCODONE 5 MG Tablet PO (12:25)
[2021-11-07] MEDS: Acetaminophen 325 MG Tablet PO (12:26)
--- NOTE | 2021-11-07 13:48 | SUR.PHASEII ---
Patient awaiting call back from Dr. Chavez to be discharged. Vital signs stable and has voided.
== END 2021-11-07 23:59 | disposition home or self-care (01) ==
LOC: SDC 06:10 → AC 06:11
PROVIDERS: PCP Internal Medicine; Referring Provider Surgery; Visit Provider Surgery
PROC: (CPT 47610; principal; 2021-11-07 07:10)
DX: K80.10 Calculus of gallbladder with chronic cholecystitis without obstruction (principal); E27.9 Disorder of adrenal gland, unspecified; K82.8 Other specified diseases of gallbladder; K66.0 Peritoneal adhesions (postprocedural) (postinfection); K42.0 Umbilical hernia with obstruction, without gangrene; K52.9 Noninfective gastroenteritis and colitis, unspecified; E80.7 Disorder of bilirubin metabolism, unspecified; F17.200 Nicotine dependence, unspecified, uncomplicated
CPT/HCPCS: 47563; 00790; 74300; 76000; 88304; 93005; J7120; J0330; J2405

== ENCOUNTER 2021-12-08 10:44 | Outpatient (CLI) | payer OTHER, SELFPAY ==
--- NOTE | 2021-12-08 10:46 | CT_ITS ---
STUDY: CT CHEST WITH CONTRAST REASON FOR EXAM: Female, 51 years old. Chest pain, Shortness of breath, Tobacco abuse RADIATION DOSAGE (If Supplied By Facility): CTDIvol = ( 9.30 ) mGy, DLP = ( 233.27 ) mGycm TECHNIQUE: Transaxial imaging was performed following intravenous administration of IV 100mL Isovue-300. Multiplanar coronal and sagittal images were reformatted. Individualized dose optimization techniques were used for this CT. COMPARISON: None. FINDINGS: Small bilateral benign-appearing axillary lymph nodes. The lungs are normal. There is no demonstrated pleural abnormality. Normal heart and pericardium. Normal mediastinum. Normal hilar regions. Normal enhanced pulmonary arteries. Normal aorta arch and descending thoracic aorta. Normal osseous structures. Contracted gallbladder with small stones. CT/Chest WITH Contrast IMPRESSION: Normal enhanced CT Chest examination. Electronically Signed: Israel Rivera MD at 12:43 EST ,
--- NOTE | 2021-12-08 11:55 | PFTCOMP_ITS ---
COMPLETE PULMONARY FUNCTION TEST INTERPRETATION Brief HPI: Patient is a 51 year old female, currently under the care of Dr. Larose, who presents to [facility] for complete pulmonary function tests secondary to diagnosis of dyspnea. Respiratory therapist reports good effort and reproducible results. Interpretation: Forced expiration spirometry shows no large airways obstructive ventilatory defect with an FEV1 of 107% predicted. There is no significant bronchodilator response by strict ATS criteria. Spirograms are of good quality and plateau slowly, indicating slowly emptying areas of the lungs. The respiratory flow volume loop shows decreased expiratory flow rates at high lung volumes consistent with small airways obstruction. Lung volumes by body plethysmography show an elevated total lung capacity at 6.3 L, 138% predicted. All other lung volumes are at the upper limit of normal. Diffusion capacity by carbon monoxide is normal at 100% predicted. The airway resistance is normal. No previous pulmonary function tests were available for review. Impression: These pulmonary function tests are also within normal limits. There is subtle stigmata of small airways disease. Consider bronchoprovocation if asthma is a consideration.
== END 2021-12-08 23:59 | disposition home or self-care (01) ==
LOC: CT 10:46
PROVIDERS: PCP Internal Medicine; Referring Provider Internal Medicine; Visit Provider Internal Medicine
DX: R06.02 Shortness of breath (principal); R07.89 Other chest pain; Z72.0 Tobacco use
CPT/HCPCS: 71260; 94060; 94726; 94729; Q9967

== ENCOUNTER → 2022-02-09 | Outpatient (CLI) | payer OTHER, SELFPAY ==
[2022-02-09 15:30] LABS: Vitamin D,25 Hydroxy 24.7 ng/mL
[2022-02-09 15:36] LABS: Follicle Stimulating Hormone 6.5 mIU/mL; Luteinizing Hormone 9.4 mIU/mL; Thyroid Stim Hormone (TSH) 1.39 uIU/mL (0.358-3.74)
[2022-02-15 10:09] LABS: Testosterone, % Free 2.52 % (0.50-2.80); Testosterone, Total 16 ng/dL (4-50)
[2022-02-15 12:11] LABS: Adrenocorticotropic Hormone 9.9 pg/mL (7.2-63.3)
[2022-02-17 09:58] LABS: 17-Hydroxyprogesterone 29 ng/dL (.)
== END | disposition home or self-care (01) ==
LOC: BIMLAB 12:00
PROVIDERS: Surgery; PCP Internal Medicine; Referring Provider Internal Medicine Endocrinology, Diabetes & Metabolism; Visit Provider Internal Medicine Endocrinology, Diabetes & Metabolism
DX: E27.8 Other specified disorders of adrenal gland (principal); E55.9 Vitamin D deficiency, unspecified
CPT/HCPCS: 36415; 82024; 82306; 82533; 82627; 83001; 83002; 83498; 84146; 84402; 84403; 84443; 82626

== ENCOUNTER 2022-08-02 07:57 | Day surgery (SDC) | payer OTHER, SELFPAY ==
[2022-08-02 08:34] VITALS: BP 106/70; PULSE 85; RESP 16; TEMP 36.6; O2SAT 99; BMI 22.6
[2022-08-02] MEDS: Lactated Ringers 1,000 ML 15 ML IV (08:40)
--- NOTE | 2022-08-02 08:49 | HP.PCM_ITS ---
History and Physical Date of Service:? 12/08/21 MR#: [id number] Acct: [id number] Name:? CRISTIAN FROST Rep #: [id number] : 1970 ? ? Provider: Dr. Robe Chavez MD Age/Sex:? 51/F ? ? Location: [facility] Status: Signed Intake Intake Visit Reasons:?F/U LAP ROSENDO 11/07 Chief Complaint: FU.? Chronic conditions.? Recent surgery. Allergies Sulfa (Sulfonamide Antibiotics) Allergy (Verified 11/23/21 10:14) Itching PFSH Medical History?(Updated 12/08/21 @ 17:[address] Robe Chavez MD) Adrenal gland disorder Adrenal hyperplasia Alcohol use Atypical chest pain Back pain Cholelithiasis Cough Diarrhea GI problem Heart murmur Hemorrhoids History of stress test Kidney stones Leg cramps Limb weakness Polycystic ovaries Preventative health care Shortness of breath Shoulder pain Smoker Sorethroat Tobacco abuse URI (upper respiratory infection) Surgical History?(Updated 12/08/21 @ 17:[address] Robe Chavez MD) H/O: hysterectomy History of bowel resection History of cholecystectomy removal of benign abdominal mass Status post laser lithotripsy of ureteral calculus Family History? Grandmother AnemiaMother DiabetesBrother DiabetesAunt Severe allergyUnknown ?? No problems noted. Social History? Smoking Status:? Current every day smoker tobacco type: cigarettes Tobacco: How many years used:? 35 alcohol intake:? current alcohol intake frequency: holidays/special occasions only substance use type:? does not use HPI HPI HPI: CRISTIAN FROST, is a 51 F, who is known to me from a recent cholecystectomy for chronic cholecystitis, presents to the office today for need to schedule diagnostic colonoscopy secondary to abdominal pain, recent bleeding per rectum, as well as to update maintenance/surveillance exams.? Patient has had prior colonoscopy?with the last being in 2017 and was given 5-year follow- up.? 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 Patient notes that the cholestyramine that she was prescribed following our cholecystectomy has helped greatly in giving form to her stools. They describe their bowel habits as normal and occurring 1-2 times daily without significant straining.? However they have noted recent bright red blood per rectum?including a stool earlier this morning.? Patient states that this was limited to the toilet tissue only and did not seem to coat the stool.? She confirms a longstanding history of hemorrhoids but states the tissue that protrudes does not reliably reduce back into her anus.? They do not regularly take fiber supplements but she believes she is getting some fiber with her daily diet.? Patient has no family history of inflammatory bowel disease, diverticulitis, or colon cancer ?Patient has no personal history of GERD.. ? ? Patient is also queried about finding of bilateral adrenal enlargement (left greater than right.? She states that although she has been diagnosed with polycystic ovaries, she has never been worked up for polycystic ovarian syndrome.? She states the cysts on her ovaries merely cause pain with menstruation and ultimately led to right oophorectomy and hysterectomy.? She denies observation of any abnormal hair growth. Patient also mentions in passing that she has developed a painful lump on the back of her left neck.? This was found incidentally when rubbing her neck while driving.? Her daughter suggested to her that this may be simply inflamed lymph node. Exam Const General: cooperative, healthy appearing and no acute distress Orientation: alert Neck Other: Along the left posterior neck (in the posterior auricular location) patient has a semimobile, tender lump consistent with an enlarged lymph node GI Inspection: non-distended Other: Incisions are well-healing from her recent laparoscopic cholecystectomy.? Patient has no tenderness with palpation. Assessment and Plan Assessment and Plan (1) Status post laparoscopic cholecystectomy: ?Status:?Acute ?Comment: Patient recovering well following our laparoscopic cholecystectomy on 11/07/2021.? Her incisions are well-healing.? She denies any tenderness in the right upper quadrant on exam (2) Adrenal abnormality: ?Status:?Acute ?Comment: 51-year-old female with incidentally noted thickening of the left greater than right adrenal glands.? Phenotypically, patient does not exhibit clear picture of adrenal hyperplasia.? Still, with her diagnosis of polycystic ovaries and the CT findings, will order a basal 17 hydroxyprogesterone level and refer to endocrinology for the further work-up.? A contrasted CT of the abdomen pelvis may also be informative, however, patient notes that she just went for a contrasted CT of her chest today for an unrelated issue and is reluctant to go for additional imaging at this time. ? ? ? Orders:?Orders: ? 17-Hydroxyprogesterone Today ? ? Referrals: ? Endocrinology ?Plan: ?Obtain basal level of 17 hydroxyprogesterone ?Referral to endocrinology, Dr. Valdes ?Contrasted CT of the abdomen may be beneficial, but will defer to Dr. Valdes's assessment (3) Bright red blood per rectum: ?Status:?Acute ?Comment: Patient with longstanding history of abdominal pain status post exploratory surgery with reported en bloc resection of large and small bowel who continues with abdominal pain and reports of bright red blood per rectum.? Patient's last colonoscopy was in 2016 at which time she was instructed to receive follow-up endoscopy in 5 years.? Therefore, patient exhibits indications for both diagnostic colonoscopy as well as need to update surveillance/maintenance exam. ?Plan: Plan to proceed for colonoscopy under local MAC at first mutually available date.? Patient was informed she will need to complete a bowel prep (which was recently reviewed with her spouse) and she denies any questions related to this. (4) Cervical lymphadenopathy: ?Status:?Acute ?Comment: Patient appears to have an enlarged posterior cervical lymph node.? This was tender with exam.? Given this tenderness, favor reactive lymphadenopathy.? Patient advised to continue watchful monitoring of this lymph node over the next 1 month.? If it persists, I would be happy to see her back to consider possible biopsy. ?Plan: ?Continue watchful monitoring of this area given clinical impression of reactive adenopathy, but if it persists would recommend consideration of biopsy I have re-examined the patient. There are no clinical changes since date of exam. Patient confirms that her bowel habits have returned to her normal (as they were following the mass excision from the right upper quadrant) and she has not noticed any changes as a direct result of her cholecystectomy. She denies any bleeding in the time since her last visit together. She confirms that she completed her prep successfully and her output is now clear. Therefore we will proceed with a diagnostic colonoscopy under local MAC as described above.
[2022-08-02 09:45] VITALS: BP 106/71; BP 115/75; PULSE 75; RESP 16; TEMP 36.8; O2SAT 100
[2022-08-02 09:50] VITALS: BP 106/71; BP 94/55; PULSE 78; RESP 16; O2SAT 100
--- NOTE | 2022-08-02 09:50 | OP.COLON_ITS ---
Patient Name: Nola Rod Procedure Date: 08/02/2022 8:25 AM Date of : 1970 Age: 52 Procedure: Colonoscopy Indications: Hematochezia Providers: Robe Chavez MD Medicines: See the Anesthesia note for documentation of the administered medications Patient Profile: Refer to note in patient chart for documentation of history and physical. Last Colonoscopy: 5 years ago. Complications: No immediate complications. Estimated blood loss: Minimal. Procedure: Pre-Anesthesia Assessment: - The heart rate, respiratory rate, oxygen saturations, blood pressure, adequacy of pulmonary ventilation, and response to care were monitored throughout the procedure. After I obtained informed consent, the scope was passed under direct vision. Throughout the procedure, the patient's blood pressure, pulse, and oxygen saturations were monitored continuously. The colonoscope was introduced through the anus and advanced to the cecum, identified by transillumination. The colonoscopy was performed without difficulty. The patient tolerated the procedure well. The quality of the bowel preparation was adequate to identify polyps. Scope In: 8:58:51 AM Scope Withdrawal Time 0 hours 32 minutes 17 seconds Scope Out: 9:39:20 AM Total Procedure Duration Time 0 hours 40 minutes 29 seconds Findings: A 2 mm polypoid lesion was found in the cecum. The lesion was sessile. No bleeding was present. Biopsies were taken with a cold forceps for histology. Estimated blood loss was minimal. A 4 mm, non-bleeding polyp was found in the rectum. The polyp was semi-sessile. Biopsies were taken with a cold forceps for histology. Estimated blood loss was minimal. No additional abnormalities were found on retroflexion. Impression: - Likely benign polypoid lesion in the cecum. Biopsied. - One 4 mm, non-bleeding polyp in the rectum. Biopsied. Recommendation: - Discharge patient to home (via wheelchair). - Resume previous diet today. - Continue present medications. - Await pathology results. - Repeat colonoscopy in 5 years for surveillance based on pathology results. - Telephone my office for pathology results in 1 week. Procedure Code(s): --- Professional --- 06512, Colonoscopy, flexible; with biopsy, single or multiple Diagnosis Code(s): --- Professional --- D49.0, Neoplasm of unspecified behavior of digestive system K62.1, Rectal polyp K92.1, Melena (includes Hematochezia) CPT copyright 2017 [employer]. All rights reserved. The codes documented in this report are preliminary and upon ultrasound supervisor review may be revised to meet current compliance requirements. Robe Chavez MD 08/02/2022 9:49:15 AM This report has been signed electronically. Number of Addenda: 0 Note Initiated On: 08/02/2022 8:25 AM
--- NOTE | 2022-08-02 09:51 | OP.CCLET_ITS ---
08/02/2022 Jacki Larose MD [address] [place] [address] [place] [address] Re : Colonoscopy procedure for Nola Rod Dear Dr. Larose This procedure was performed on July. My impressions and recommendations are as follows: Impressions : - Likely benign polypoid lesion in the cecum. Biopsied. - One 4 mm, non-bleeding polyp in the rectum. Biopsied. Recommendations : - Discharge patient to home (via wheelchair). - Resume previous diet today. - Continue present medications. - Await pathology results. - Repeat colonoscopy in 5 years for surveillance based on pathology results. - Telephone my office for pathology results in 1 week. My findings are described in the full procedure note, which is enclosed. If I can be of further assistance, please feel free to contact me at Doctor phone number(s): , Work: . Sincerely, Robe Chavez MD 08/02/2022 9:49:15 AM This report has been signed electronically.
[2022-08-02 09:55] VITALS: BP 106/71; BP 107/78; PULSE 83; RESP 16; O2SAT 100
[2022-08-02 10:00] VITALS: BP 106/71; BP 113/74; PULSE 69; RESP 16; TEMP 37; O2SAT 100
[2022-08-02 10:23] VITALS: BP 106/71
--- NOTE | 2022-08-02 12:30 | COLBX_PTH ---
PATIENT: CRISTIAN FROST LOC: EN U#:[id number] AGE/SX: 52/F ROOM: RE08/02/[address]: Dr. Robe Chavez MD : 1970 BED: DIS: 08/02/2022 SPEC #: [id number] RECD: 08/02/22 12:30 STATUS: MEL SALLIE #: [id number] JUAN: 08/02/22 12:[address]: Robe Chavez DEPT: SURGICAL PATHOLOGY RECD BY: Kecia Rosen ENTERED: 08/02/22 13:10 SP TYPE: COLON BX PATRICIO DR: Dr. Jacki Larose MD Tissues: A - COLON BIOPSY B - Rectum, NOS Procedures: Surgery Specimen Level IV HEADER OPERATION: Colonoscopy (MAC) PRE-OP DIAGNOSIS: Status post laparoscopic cholecystectomy, adrenal abnormality TISSUE SUBMITTED: A ? Right colon biopsy, B ? Rectal polyp biopsy MICROSCOPIC DIAGNOSIS A. Right colon, biopsy: Fragments of small intestinal mucosa, no pathologic diagnosis. B. Rectal polyp, biopsy: Hyperplastic polyp. EDDIE:nhung 08/03/2022 MICROSCOPIC DESCRIPTION Slides are reviewed. GROSS DESCRIPTION A - Received in fixative is one container labeled with the patient's name and designated right colon biopsy. The specimen consists of multiple irregular fragments of light harris soft tissue that in aggregate measure 1 x 0.3 x 0.1 cm. The specimen is totally submitted in one cassette. B - Received in fixative is one container labeled with the patient's name and designated rectal polyp biopsy. The specimen consists of two irregular fragments of light harris soft tissue that in aggregate measure 0.4 x 0.4 x 0.1 cm. The specimen is totally submitted in one cassette. / EDDIE:nhung 08/02/2022 TC:1 [facility]: [id number] x2
== END 2022-08-02 10:25 | disposition home or self-care (01) ==
LOC: EN 07:58 → AC 07:59
PROVIDERS: PCP Internal Medicine; Referring Provider Internal Medicine; Visit Provider Surgery
PROC: 0DJD8ZZ Inspection of Lower Intestinal Tract, Via Natural or Artificial Opening Endoscopic (ICD-10-PCS; CPT 45378; principal; 2022-08-02 08:55)
DX: K62.1 Rectal polyp (principal); K63.5 Polyp of colon; F17.210 Nicotine dependence, cigarettes, uncomplicated; R19.7 Diarrhea, unspecified
CPT/HCPCS: 45380; 88305; J7120; J2405

== ENCOUNTER 2022-09-07 09:44 | Outpatient (CLI) | payer OTHER, SELFPAY | END 2022-09-07 23:59 | disposition home or self-care (01) | PROVIDERS: PCP Internal Medicine; Visit Provider Physician Assistant | DX: U07.1 COVID-19 (principal); R09.81 Nasal congestion | CPT/HCPCS: 87635; U0003; U0005 ==

== ENCOUNTER → 2022-10-08 | Outpatient (CLI) | payer OTHER, SELFPAY ==
--- NOTE | 2022-10-08 09:01 | RAD_ITS ---
STUDY: X-RAY - RIGHT SHOULDER REASON FOR EXAM: Female, 52 years old. Right shoulder pain TECHNIQUE: 5 view(s) of the shoulder. COMPARISON: None. FINDINGS: Normal glenohumeral articulation. There is minimal degenerative arthrosis of the acromioclavicular joint without inferior osseous spur formation. Normal acromion. Normal humeral head and visualized proximal humerus. The soft tissue structures are unremarkable. Normal visualized pulmonary apex. RAD/Shoulder min 2 Views IMPRESSION: Minimal degenerative change, narrowing of the acromioclavicular joint. No visualized acute fracture. Electronically Signed: Kelli Calderon MD at 23:57 EST Reading Location ID and State: [facility] / [place] Tel , Service support ,
[2022-10-08 11:50] LABS: Absolute Lymphocyte Count 7.63 X10^3/uL (0.83-4.51); Absolute Neutrophil Count 5.7 X10^3/uL (2.0-7.7); Basophil# 0.13 X10^3/uL; Basophil% 0.9 % (0-1); Eosinophil# 0.17 X10^3/uL; Eosinophils% 1.2 % (0-5); Hematocrit 42.3 % (37-47); Hemoglobin 13.9 g/dL (12.0-15.0); Lymphocyte # 7.63 X10^3/ul (0.83-4.51); Mean Corp Hgb Conc 32.9 g/dL (32-36); Mean Corpuscular Hgb 28.4 pg (27.0-32.0); Mean Corpuscular Volume 86.5 fL (81-99); Mean Platelet Vol. 11.5 fl (6.2-12.0); Monocyte# 0.72 X10^3/uL; NRBC Flagged by Analyzer 0 % (0-5); Neutrophil % 39.6 % (47-70); POSITIVE DIFFERENTIAL YES; Platelet Count 299 K/mm3 (150-450); RBC Distribution Width CV 13.8 % (11.6-14.6); RBC Distribution Width SD 43.3 fl (35.1-43.9); Red Blood Count 4.89 M/mm3 (4.2-5.4); White Blood Count 14.4 K/mm3 (4.4-11.0)
[2022-10-08 12:08] LABS: Differential Indicated SCAN CRITERIA MET
[2022-10-08 12:22] LABS: AST(SGOT) 7 U/L (15-37); Alanine Aminotransfer ALT/SGPT 16 U/L (13-56); Albumin, Serum 3.4 g/dL (3.2-5.0); Alkaline Phosphatase 71 U/L (45-117); Anion Gap 6 (5-15); BUN 11 mg/dL (7-18); BUN/Creat Ratio 19.3 RATIO (10-20); Calcium,Total 8.2 mg/dL (8.5-10.1); Chloride 111 mmol/L (98-107); Creatinine, Serum 0.57 mg/dL (0.55-1.02); EST Glomerular Filtration Rate 118 mL/min (>60); Est Glom Filt Rate - Afr Amer 142 mL/min (>60); Globulin 3.5 g/dL (2.2-4.2); Glucose 78 mg/dL (74-106); Potassium 3.4 mmol/L (3.5-5.1); Protein, Total 6.9 g/dL (6.4-8.2); Sodium Level 142 mmol/L (136-145)
== END | disposition home or self-care (01) ==
LOC: BIMLAB 08:39 → RAD 09:01
PROVIDERS: PCP Internal Medicine; Referring Provider Internal Medicine; Visit Provider Internal Medicine
DX: M25.511 Pain in right shoulder (principal); M19.019 Primary osteoarthritis, unspecified shoulder; F41.9 Anxiety disorder, unspecified; F32.9 Major depressive disorder, single episode, unspecified
CPT/HCPCS: 36415; 73030; 80053; 85025

== ENCOUNTER → 2022-10-31 | Outpatient (CLI) | payer OTHER, SELFPAY ==
--- NOTE | 2022-10-31 08:24 | US_ITS ---
STUDY: ABDOMINAL ULTRASOUND REASON FOR EXAM: Female, 52 years old. LYMPHOCYTOSIS -- ABN LABS TECHNIQUE: Transabdominal ultrasound was performed with real-time and static chambers scale imaging. TECHNICAL QUALITY: Adequate. COMPARISON: Comparison is made with prior examination dated 10/30/2021. FINDINGS: Liver: The liver measures 12.9 cm. There is increased echogenicity consistent with fatty infiltration. The bile ducts are within normal limits. There is hepatic color flow. The direction of portal flow is hepatopetal. Stable 1.1 cm x 1 cm x 0.7 cm cyst in the right lobe of the liver adjacent to the gallbladder fossa. Gallbladder: The gallbladder is not visualized. Common Bile Duct (C.B.D.): The common bile duct measures 2.8 mm. Pancreas: Normal size of the head, body and tail of the pancreas. There is normal echogenicity of the pancreas. There is no demonstrated pancreatic mass or cyst. Spleen: Normal size of the spleen. The spleen measures 10.9 cm x 6.2 cm x 4.3 cm. Right Kidney: Normal size of the right kidney. The right kidney measures 10.3 cm x 6.1 cm x 4.4 cm. Normal renal cortex. The right cortex measures 1.4 cm. There is no demonstrated renal mass or cyst. The third 2 tiny nonobstructive right intrarenal calculi. Left Kidney: Normal size of the left kidney. The left kidney measures 11.1 cm x 5.8 cm x 5.7 cm. Normal renal cortex. The left cortex measures 1.5 cm. 2.4 cm x 1.9 cm and 0.9 cm renal cyst. 4 mm nonobstructive intrarenal calculus. There is no left hydronephrosis. Aorta: Unremarkable I.V.C.: The IVC is patent. There is no ascites. US/Abdomen Complete IMPRESSION: Fatty infiltration of the liver. Status post cholecystectomy. Otherwise stable examination. Electronically Signed: Israel Rivera MD at 9:54 EST ,
== END | disposition home or self-care (01) ==
LOC: US 08:23
PROVIDERS: PCP Internal Medicine; Visit Provider Internal Medicine Medical Oncology
DX: D72.820 Lymphocytosis (symptomatic) (principal); Z90.49 Acquired absence of other specified parts of digestive tract
CPT/HCPCS: 76700

== ENCOUNTER 2022-11-21 16:00 | Outpatient (RCR) | payer OTHER, SELFPAY ==
--- NOTE | 2022-10-11 17:18 | HP.PTEVAL ---
Patient's Visit Information CRISTIAN FROST is a 52 year old F referred to Physical Therapy by Dr. Jacki Larose MD with a diagnosis of R shoulder pain. Date of Evaluation: 10/11/22 Physical Therapist: Serge Plaza, LOLYT, OCS, CSCS - Visit Plan Frequency: 2x /Week Duration: 4-6 Weeks Plan: 2x/week for 4-6 weeks for postural emphasis and strength, Rc strength, scap strength and progress to I program, ice as needed, US if opainful at rest. 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 Also having a hard time sleeping as she hurts anterior shoulder if she moves suddenly. Has had pain 6 weeks and tried bands with R shoulder(she used to do them with L). Strengthening helped a little. Sleeping has been better. Pain is Ok at rest. 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 Opening jar f sauce can hurt. Leaning on R arm in recliner. Sleep is interrupted but better since band ex. Basic ADLs are OK but has to fasten bra in front. Shirt off is painful. Enjoys reading. Has yo grandchildren. - Pain R shoulder. Pain Intensity (Out of 10): 0 Pain Intensity Range: 0, 9 - Objective Slight forward scap posture and fw head. Tender to palpation over supraspinatus and biceps tendon R shoulder. Full cervical and elbow and hand AROM. Full r shoulder AROM except for IR which is limited R vs L and slightly painful to put hand behind back. Pain end range of flexion. + HK, + neer R, - ext rot lag test, - sulcus test. reflexes 2/3 biceps and triceps. Sensation WNL to gross light touch. Strength is painful with IR and ext rot R, 3+ R and 4- L, pain with empty can R, 4- and 4 L. biceps and triceps strength 4/5 without pain B. 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 Goal Time Frame: 4-6 Weeks Goal 5:: Quickdash score of 15 or better Goal Time Frame: 4-6 Weeks - Rehabilitation Potential Physical Therapy Diagnosis: R shoulder impingement supraspinatus tendonitis. Rehabilitation Potential: Good - Anticipated Interventions Patient/Client Instruction: Educate patient on: Condition, Plan of Care For the Purpose of:: To decrease pain, To increase ROM, To improve nutrient delivery to tissue, To improve muscle performance and motor function, To increase tolerance to activity/condition/position Therapeutic Exercise to Include: Strength training, Postural training, Flexibilty training, Passive ROM, Active ROM For the Purpose of:: To decrease pain, To increase ROM, To improve nutrient delivery to tissue, To increase oxygenation perfusion, To improve muscle performance and motor function, To increase tolerance to activity/condition/position Manual Therapy Techniques to Include: Mobilization, Passive ROM For the Purpose of:: To decrease pain, To increase ROM Cryotherapy (ice pack, ice massage): Yes For the Purpose of:: To decrease swelling/inflammation Thank you for the opportunity to evaluate your patient. For Medicare and Medicare HMO plans, please review the plan of care and approve it. It will need to be FAXED BACK to us at [phone] for Medicare purposes. For Medicare only, by signing this I certify the plan of care. Please let me know if there are questions or concerns regarding this plan of care. Physician Signature: Date:
--- NOTE | 2022-11-21 16:44 | HP.PTDCSUM ---
It has been my pleasure to treat CRISTIAN FROST referred by Dr. Jacki Larose MD, with the diagnosis of R shoulder pain for a total of 9 visit(s). Discharge Date: 11/21/22 Please see the following information for a summary of their discharge status. Subjective: I got bands to do at home. I am 90% better. Still has some pain with stupid stuff like opening jar, twisting. 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 Wants to continue bands at home and feels like she can do it. Will see Dr. Larose on 11/30 R shoulder. Pain Intensity (Out of 10): 0 % Improvement: 90 Objective/Function: Full aROM R shoulder. strength symmetrical with L in all motions except ext rotation which is 4-. Only slight pain with ext rotation, not empty can or flexion. Overall doing well and progressing nicely and I with HEp which she can continue on her own. 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 Goal Progress: Goal Met Goal 5:: Quickdash score of 15 or better Goal Progress: Goal Met Plan: d/c If there are questions or concerns regarding this patient's physical therapy, please feel free to call me at [phone]. Thank you for the referral of this patient. Sincerely, Serge Plaza, DPT, OCS, CSCS Balance/Gait/Functional tests - Balance/Special Test Scores Quick DASH Score: 4.5450
== END 2022-11-21 19:00 | disposition home or self-care (01) ==
LOC: PT 16:00
PROVIDERS: PCP Internal Medicine; Referring Provider Internal Medicine; Visit Provider Internal Medicine
DX: M25.511 Pain in right shoulder (principal)
CPT/HCPCS: 97035; 97110; 97140; 97161; 97164

== ENCOUNTER → 2022-12-28 | Outpatient (CLI) | payer OTHER, SELFPAY ==
--- NOTE | 2022-12-28 12:56 | CT_ITS ---
STUDY: CT ABDOMEN AND PELVIS WITH CONTRAST REASON FOR EXAM: Female, 52 years old. Abdominal mass, abdominal pain RADIATION DOSAGE (If Supplied By Facility): CTDIvol = ( 14.37 ) mGy, DLP = ( 564.73 ) mGycm TECHNIQUE: Transaxial images were obtained from the dome of the diaphragm to the symphysis pubis with oral contrast. Oral and amp; IV Readi-CAT and amp; 100mL Isovue-300 was administered. Sagittal and coronal images were reconstructed. Individualized dose optimization techniques were used for this CT. COMPARISON: Comparison is made with prior examination dated October 23, 2021. FINDINGS: The visualized lung bases are unremarkable. The visualized portions of the heart are within normal limits. Stable 6.6 mm cyst in the medial right lobe of the liver. There are surgical clips in the gallbladder fossa consistent with a prior cholecystectomy. Normal spleen. Normal pancreas. Stable mild hyperplasia. Generalized bilaterally. Normal right kidney. There is a 1.4 cm cyst in the lower pole of the left kidney. Normal visualized stomach. Normal small intestine. Large amount of fecal material is seen in the rectosigmoid colon. There is fullness of the right hemicolon. There is non-visualization of the appendix. Normal abdominal aorta. Normal inferior vena cava. Normal retroperitoneum. Normal urinary bladder. Normal abdominal wall. Degenerative changes at the L5-S1 level. CT/Abdomen/Pelvis WITH Contrast IMPRESSION: Status post cholecystectomy. Stable small cyst in the medial aspect of the right lobe of the liver. Stable left renal cyst. Electronically Signed: Israel Rivera MD at 14:12 EST ,
== END | disposition home or self-care (01) ==
LOC: CT 12:54
PROVIDERS: PCP Internal Medicine; Visit Provider Surgery
DX: R19.00 Intra-abdominal and pelvic swelling, mass and lump, unspecified site (principal); R10.9 Unspecified abdominal pain
CPT/HCPCS: 74177; Q9967

== ENCOUNTER → 2023-08-21 | Outpatient (CLI) | payer OTHER, SELFPAY ==
--- NOTE | 2023-08-21 12:05 | BI_ITS ---
MAMMOGRAPHY - BILATERAL SCREENING REASON FOR EXAM: Female, 53 years old. Routine annual screening examination. PERTINENT HISTORY: Non-contributory. TECHNIQUE: Digital bilateral breast shadi (3D mammographic acquisition) in the CC and MLO projections. 2-D mediolateral oblique (MLO) and craniocaudad (CC) views of both breasts were obtained. CAD: Full Field Digital Mammography with Computer Added Detection was performed. COMPARISON: Comparison is made with prior abdomen examination dated September 09, 2017. FINDINGS: Breast Composition: The breasts are heterogeneously dense, which may obscure small masses. There are no dominant masses or suspicious calcifications. Stable small bilateral axillary lymph nodes. No other significant abnormalities are identified. There has been no significant change since the prior study. BI/SCRN MAMM (CAD)W/SHADI BILAT IMPRESSION: Stable bilateral screening mammogram. Yearly follow-up mammogram recommended. (A) ASSESSMENT CATEGORY: BIRADS Category 2: Benign. A letter regarding these results will be sent to the patient by the facility within 30 days. Approximately 10% of breast cancers are not detected by mammography. A normal mammogram should not delay biopsy of a clinically suspicious abnormality. [id number] Electronically Signed: Israel Rivera MD at 13:29 EDT ,
== END | disposition home or self-care (01) ==
LOC: OPBI 12:04
PROVIDERS: PCP Internal Medicine; Referring Provider Internal Medicine; Visit Provider Internal Medicine
DX: Z12.31 Encounter for screening mammogram for malignant neoplasm of breast (principal)
CPT/HCPCS: 77063; 77067

== ENCOUNTER → 2024-12-10 | Outpatient (CLI) | payer OTHER, SELFPAY ==
--- NOTE | 2024-12-10 09:06 | BI_ITS ---
PROCEDURE: SCRN MAMM (CAD)W/SHADI BILAT REASON FOR EXAM: No family history. Routine mammographic follow-up. TECHNIQUE: Bilateral diagnostic digital breast tomosynthesis with 2D and 3D images. Computer aided detection. COMPARISON: Prior exam(s) dating back to August 21, 2023.. FINDINGS: There are scattered areas of fibroglandular density. No evidence of suspicious mass or cluster of microcalcification. Stable bilateral axillary lymph nodes. BI/SCRN MAMM (CAD)W/SHADI BILAT IMPRESSION: BI-RADS 2: BENIGN. RECOMMEND ANNUAL MAMMOGRAPHIC SCREENING. Follow-up code: Routine Follow-up Reading Location: [facility]
== END | disposition home or self-care (01) ==
LOC: OPBI 09:05
PROVIDERS: PCP Internal Medicine; Referring Provider Internal Medicine; Visit Provider Internal Medicine
DX: Z12.31 Encounter for screening mammogram for malignant neoplasm of breast (principal)
CPT/HCPCS: 77063; 77067

== ENCOUNTER → 2025-01-22 | Outpatient (CLI) | payer OTHER, SELFPAY ==
--- NOTE | 2025-01-22 12:04 | CT_ITS ---
PROCEDURE: Noncontrast CT of the abdomen/pelvis. 01/22/2025 REASON FOR EXAM: Right flank pain. History of kidney stones TECHNIQUE: Contiguous unenhanced axial CT images were obtained through the abdomen/pelvis. Sagittal and coronal reformats were created. One or more dose reduction techniques were used (e.g., Automated exposure control, adjustment of the mA and/or kV according to patient size, use of iterative reconstruction technique). COMPARISON: None available FINDINGS: Slight rightward curvature upper lumbar spine on coronal images. Mild degenerative changes in the spine and hip joints. Evaluation of the solid organs and vascular structures is limited due to lack of intravenous contrast. Heart is not enlarged. No sizable pericardial effusion. Lower lungs clear. Abdominal aorta normal in caliber. No abdominal/pelvic ascites. No focal abnormality of the urinary bladder. There may be a tiny fat containing umbilical hernia. Several surgical clips in the upper abdomen. The gallbladder appears to be absent. There is a patulous segment of small bowel at an anastomotic site in the right upper abdomen, containing some fluid density, measuring 5.1 cm in diameter. No significant bowel wall thickening. In the central anterior right hepatic lobe image 47 axial images, there is an 8 mm probable cyst. No dominant space-occupying liver lesion on the provided noncontrast images. The right adrenal gland, spleen, and pancreas show no specific abnormality. The kidneys are symmetric in size and attenuation. No radiopaque left renal calculi. There are several radiopaque right renal calculi, the largest measuring 5 mm. No radiopaque ureteral calculus or evidence of significant obstructive uropathy. According to technologist notes, the patient has had a prior hysterectomy. There is some nonspecific fullness of the vaginal cuff measuring 6.8 x 3.8 cm image 137 axial images. No dominant adnexal lesion. No grossly dilated bowel segments or free intraperitoneal air. Scattered patchy wall thickening of the colon may be due to lack of distention versus peristalsis. [id number] stool in the colon. There appears to have been a right hemicolectomy. There are some mildly enlarged upper abdominal lymph nodes, near the level of the kidneys, measuring up to 2.[address]/Abdomen/Pelvis without Cont IMPRESSION: No definite acute findings in the abdomen/pelvis. There are nonobstructing rig ht renal calculi. No ureteral calculus or obstructive uropathy. There are some mildly enlarged upper abdominal lymph nodes, measuring up to 2.6 cm. These could be reactive or neoplastic. Comparison to any relevant prior studies may be helpful to determine if there h as been significant interval change. PET scan or biopsy of the upper abdominal lymph nodes may be considered if there are no arian or relevant studies which can document stability. A patulous small bowel segments measuring up to 5.1 cm in the right upper abdom en appears to be at an anastomotic site with the transverse colon. The appearance could be due to peristalsis versus stricture or possible obstructing lesion. Colonoscopy evaluation may be considered. Reading Location: [facility]
== END | disposition home or self-care (01) ==
LOC: CT 11:55
PROVIDERS: PCP Internal Medicine; Referring Provider Urology; Visit Provider Urology
DX: R10.9 Unspecified abdominal pain (principal); Z87.442 Personal history of urinary calculi
CPT/HCPCS: 74176

== ENCOUNTER 2025-01-29 09:49 | Emergency (ER) | payer OTHER, SELFPAY ==
[2025-01-29 09:50] VITALS: BP 139/77; PULSE 88; RESP 16; TEMP 36.6; O2SAT 98; BMI 22.1
--- NOTE | 2025-01-29 10:08 | EDS_ITS ---
HPI History of Present Illness Chief Complaint: Other, Pain/Inj Informant: patient Narrative Narrative: 55-year-old female presenting to the emergency room concern for broken nose. Patient states that on Saturday she was hide butted by a 2-year-old. She woke up Saturday with swelling and some redness in the bridge of her nose. She notes some congestion. She states that she went to urgent care and was put on doxycycline for a hole in my nose. Patient states that last night her dog bumped her nose again and she noted more swelling this morning which is gone down some. She denies any epistaxis. She feels pressure around her eyes. [facility] Medical History Dysfunction of left eustachian tube Screening for cardiovascular condition ADD (attention deficit disorder) Flu vaccine need Menopausal hot flushes Headache Strep pharyngitis Leukocytosis Right shoulder pain Hematochezia Lymph node enlargement Tobacco abuse, in remission Adrenal hyperplasia Adrenal gland disorder Tobacco abuse Shortness of breath Atypical chest pain Alcohol use Back pain Smoker Leg cramps History of stress test Cholelithiasis Preventative health care URI (upper respiratory infection) Sorethroat Cough Limb weakness Diarrhea Shoulder pain Hemorrhoids Polycystic ovaries Heart murmur Kidney stones GI problem Home Medications ?Medication ?Instructions ?Recorded ?Last Taken ?Type cholecalciferol (vitamin D3) 50 50 mcg PO DAILY #90 ca ps 10/03/20 Unknown Rx mcg (2,000 unit) capsule multivitamin 1 tab PO DAILY 03/08/23 Unkn own History cholestyramine (with sugar) 4 gram 4 g PO QACHS 3 marsha hs #1,134 grams 09/29/24 Unknown Rx oral powder lisdexamfetamine 30 mg capsule 30 mg PO QAM 30 days #3 0 caps 12/11/24 Unknown Rx lisdexamfetamine 30 mg capsule 30 mg PO QAM 30 days #3 0 caps 12/11/24 Unknown Rx Allergy/AdvReac Type Severity Reaction Status Date / Time Sulfa (Sulfonamide Allergy Itching Verified 12/11/24 09:02 Antibiotics) Family History Grandmother Anemia Mother Diabetes Brother Diabetes Aunt Severe allergy Unknown No problems noted. Surgical History History of colonoscopy (~2021) History of cholecystectomy History of bowel resection Status post laser lithotripsy of ureteral calculus H/O: hysterectomy removal of benign abdominal mass Social History Smoking Status: Former smoker quit date: 07/06/23 Tobacco: How many years used: 35 alcohol intake: current alcohol intake frequency: holidays/special occasions only substance use type: does not use EXAM Physical Exam Const Vital Signs: 01/29/25 09:50 01/29/25 11:32 Temperature 98 F 98 F Temperature Source Oral Pulse Rate 88 88 Respiratory Rate 16 16 Blood Pressure 139/77 H 139/77 H Blood Pressure Mean 97 97 Pulse Ox 98 98 Oxygen Delivery Method Room Air Positive well nourished and well developed General Appearance ED: well developed HEENT Reports normocephalic and moist mucous membranes HEENT Narrative: There is some mild swelling and redness over the bridge of the nose. There is no rectal. No Swann sign. No septal hematoma noted. I do not appreciate a frenulum injury or intraoral injury. Midface stable. No malocclusion. Eyes PERRL and EOMs intact bilaterally Neck no lymphadenopathy, supple and no JVD Resp normal respiratory effort and clear to auscultation bilaterally Cardio regular rate, regular rhythm and no murmurs GI normal to inspection, nondistended, normoactive bowel sounds and non-tender Palpation: soft Back/Spine no CVA tenderness and normal ROM Extremity normal to inspection General Extremety ED: Negative for edema General Extremity: Negative for edema Neuro oriented x3 and CN's II-XII intact bilaterally Sensorium / Orientation: alert Motor Exam: strength 5/5 throughout Psych mental status grossly normal Mood & Affect: Negative for depressed or tearful Skin no rashes or lesions noted and no wounds MDM MDM MDM Narrative Medical decision making narrative: Differential diagnosis includes but not limited to nasal fracture nasal contusion abscess septal hematoma facial fractures CT of the facial bones demonstrates a nondisplaced fracture. Noted septal deviation. Patient to be discharged home with supportive care. Instructions to follow-up with plastics if she has cosmetically not happy to once the swelling is down or she has difficulty breathing. Patient is comfortable with this plan History & Record Review Discussion w/independent historian: Patient Radiography Diagnostic Testing: Clinical Impression(s) from Imaging Studies Facial/Sinus 01/29/25 10:25 IMPRESSION: Hairline undisplaced fracture through the distal 3rd of the nasal bones with mild soft tissue swelling. Mild right posterior ethmoid inflammation. Mild leftward deviation of the nasal septum. Reading Location: [place] [id number] Discharge Plan Triage Chief Complaint: Other, Pain/Inj ED Provider: Everett Goff Dx/Rx/DC Orders Clinical Impression: Closed fracture nasal bone, Contusion of nose Instructions: ED Nose Fracture, with X-Ray Prescriptions: No Action multivitamin Tablet 1 tab PO DAILY lisdexamfetamine 30 mg capsule 30 mg PO QAM 30 Days Qty: 30 0RF lisdexamfetamine 30 mg capsule 30 mg PO QAM 30 Days Qty: 30 0RF cholecalciferol (vitamin D3) 50 mcg (2,000 unit) capsule 50 mcg PO DAILY Qty: 90 3RF cholestyramine (with sugar) 4 gram powder 4 g PO QACHS 90 Days Qty: 1134 3RF Rx Instructions: no meds 1 hr before/4-6 hr after dose Primary Care Provider: Jacik Larose Referrals: Jacki Larose MD [Primary Care Provider] - As Needed Sanjiv Logan MD [Med Staff - Active Staff] - (as needed for plastic surgery evaluation) Activity Restrictions/Additional Instructions: Once swelling has resolved if you are unhappy cosmetically or with breathing through the nose please follow-up with plastics. Print Language: [place] Disposition Disposition: Home, Self Care Discharge Date/Time: 01/29/25 11:34
--- NOTE | 2025-01-29 10:25 | CT_ITS ---
PROCEDURE: CT SINUS/FACIAL BONES REASON FOR EXAM: NASAL/MID FACE INJURY TECHNIQUE: CT of the facial bones without contrast. Contiguous axial scans of 2.5 mm slice thicknesses. Sagittal and coronal reconstruction images were obtained. One or more dose reduction techniques were used (e.g., automated exposure control, adjustment of mA and/or kv according to patient size, use of iterative reconstruction technique). COMPARISON: None. FINDINGS: Osseous structures: Undisplaced hairline fracture through the distal 3rd of the nasal bones, sagittal image 76. Anterior nasal spine is intact. Sinuses: No fractures or air-fluid levels. Mild mucoperiosteal thickening in the posterior right sinus. Turbinates: Unremarkable. Nasal Septum: Mild leftward deviation. Mastoids/Middle Ears: Unremarkable as visualized. Soft tissues: Mild swelling overlies the nasal bones. CT/Sinus/Facial Bone IMPRESSION: Hairline undisplaced fracture through the distal 3rd of the nasal bones with mi ld soft tissue swelling. Mild right posterior ethmoid inflammation. Mild leftward deviation of the nasal septum. Reading Location: [place] [id number]
[2025-01-29 11:32] VITALS: BP 139/77; PULSE 88; RESP 16; TEMP 36.6; O2SAT 98
== END 2025-01-29 11:34 | disposition home or self-care (01) ==
PROVIDERS: Emergency Provider Emergency Medicine; PCP Internal Medicine; Visit Provider Emergency Medicine
DX: S02.2XXA Fracture of nasal bones, initial encounter for closed fracture (principal); W50.0XXA Accidental hit or strike by another person, initial encounter; Z87.891 Personal history of nicotine dependence
CPT/HCPCS: 70486; 99282

== ENCOUNTER → 2025-06-09 | Outpatient (CLI) | payer OTHER, SELFPAY ==
--- NOTE | 2025-06-09 10:08 | CT_ITS ---
PROCEDURE: ABDOMEN/PELVIS WITHOUT CONT 06/09/2025 REASON FOR EXAM: RIGHT KIDNEY STONES, PAIN TECHNIQUE: ABDOMEN/PELVIS WITHOUT CONT Noncontrast technique limits evaluation of the abdominal and pelvic viscera. Coronal and Sagittal reconstruction series were provided. One or more dose reduction techniques were used (e.g., Automated exposure control, adjustment of the mA and/or kV according to patient size, use of iterative reconstruction technique). RADIATION DOSE SUMMARY: CTDlvol: 12 mGy DLP: 319 mGycm COMPARISON: December 28, 2022, January 22, 2025 FINDINGS: Lung bases: Clear Liver: Subcentimeter cyst left lobe liver. Otherwise, no mass. Gallbladder: Cholecystectomy. No biliary ductal dilation. Spleen: Normal. Pancreas: Normal. Adrenals: Normal. Kidneys: 6 x 4 x 3 mm calculus right upper pole. Punctate calculus medially. A 6 x 4 x 5 mm calculus right midpole. Right lower pole calculus 4 x 3 x 3 mm. 6.9 x 6.0 mm calculus in the distal ureter just proximal to the ureterovesical junction. Mild thickening of the surrounding ureter. Mild hydroureter but no significant hydronephrosis. Left kidney is unremarkable. Bladder: Normal. Multiple pelvic phleboliths. Reproductive Organs: Uterus and ovaries are unremarkable. Bowel: Partial resection of the right colon with uncomplicated anastomosis in the right midabdomen. Small bowel loops are not dilated. Stomach is unremarkable. Appendix: Surgically absent Lymph nodes: None appear enlarged. Vasculature: Mild atherosclerosis. No aneurysm. Peritoneum / Retroperitoneum: No free air, free fluid or mass. Bones: Lower lumbar facet hypertrophy. Abdominal wall: Tiny periumbilical hernia containing properitoneal fat. CT/Abdomen/Pelvis without Cont IMPRESSION: 1. Large calculus in the distal ureter on the right just proximal to ureterove sical junction with thickening of the ureter and mild hydroureter. 2. Right renal calculi. 3. Cholecystectomy Reading Location: [id number]
== END | disposition home or self-care (01) ==
LOC: CT 10:05
PROVIDERS: PCP Internal Medicine; Referring Provider Urology; Visit Provider Urology
DX: N20.0 Calculus of kidney (principal)
CPT/HCPCS: 74176

== ENCOUNTER → 2025-07-22 | Outpatient (CLI) | payer OTHER, SELFPAY ==
--- NOTE | 2025-07-22 16:58 | US_ITS ---
PROCEDURE: KIDNEY AND BLADDER 07/22/2025 REASON FOR EXAM: URETERAL AND KIDNEY STONES TECHNIQUE: Procedure Code: USKI Modality: US Procedure: KIDNEY AND BLADDER COMPARISON: 05/2025. FINDINGS: The right kidney measures 10.3 x 4.4 x 4.3 cm with cortical thickness 1.0 cm. Cortical echogenicity is within normal limits. Nonobstructing renal calculi are present, largest measuring 0.4 x 0.6 x 0.6 cm and 0.5 x 0.4 x 0.4 cm. Mild to moderate hydronephrosis is present. No renal mass or cyst identified. The left kidney measures 10.1 x 4.6 x 5.5 cm with cortical thickness 1.0 cm. Cortical echogenicity is within normal limits. Nonobstructing renal calculi are present, largest measuring 0.4 x 0.4 x 0.4 cm and 0.3 x 0.3 x 0.2 cm. A complex cystic structure with internal septations is present, measuring 1.7 x 1.7 x 1.4 cm. No hydronephrosis. The urinary bladder is distended with a volume of 259.3 mL. Bladder wall thickness is 0.2 cm, within normal limits. No bladder mass or calculus is seen. The right ureter is not visualized. Right ureteral jet is visualized. The left ureter is not visualized. Left ureteral jet is visualized. US/Kidney and Bladder IMPRESSION: Nonobstructing bilateral renal calculi. Mild to moderate right hydronephrosis. Complex left renal cyst with internal septations measuring up to 1.7 cm. Normal cortical thickness and echogenicity of both kidneys. Normal urinary bladder with bilateral ureteral jets identified. Reading Location: [id number]
== END | disposition home or self-care (01) ==
LOC: US 16:57
PROVIDERS: PCP Internal Medicine; Referring Provider Urology; Visit Provider Urology
DX: N20.0 Calculus of kidney (principal)
CPT/HCPCS: 76770

== ENCOUNTER 2025-07-29 06:00 | Day surgery (SDC) | payer OTHER, SELFPAY ==
[2025-07-27 11:14] LABS: Hematocrit 40.2 % (37-47); Hemoglobin 13.5 g/dL (12.0-15.0); Mean Corp Hgb Conc 33.6 g/dL (32-36); Mean Corpuscular Volume 84.1 fL (81-99); Mean Platelet Vol. 10.4 fl (6.2-12.0); Platelet Count 289 K/mm3 (150-450); RBC Distribution Width CV 13.0 % (11.6-14.6); RBC Distribution Width SD 39.9 fl (35.1-43.9); Red Blood Count 4.78 M/mm3 (4.2-5.4); White Blood Count 21.2 K/mm3 (4.4-11.0)
[2025-07-27 12:01] LABS: Anion Gap 10 (5-15); BUN 13 mg/dL (4-19); BUN/Creat Ratio 20.8 RATIO (10-20); Calcium,Total 8.9 mg/dL (7.6-11.0); Carbon Dioxide 24.9 mmol/L (21.0-32.0); Chloride 104 mmol/L (98-108); Glucose 128 mg/dL (70-99); Potassium 4.4 mmol/L (3.3-5.1)
[2025-07-29] VITALS (8 sets, daily range): BP systolic 111–137; BP diastolic 67–86; PULSE 66–87; RESP 12–20; TEMP 36.3–36.8; O2SAT 97–100; BMI 22.4
[2025-07-29] MEDS: Lactated Ringers 1,000 ML 15 ML IV (06:40)
--- NOTE | 2025-07-29 06:42 | PCM.PRE.AN2 ---
ASA Classification* ASA Classification ASA Classification: 2 Assessment & Plan Anesthesia* Anesthesia Assessment Anesthesia Assessment: Discussed sedation and/or anesthesia options, risks, benefits, and alternatives with patient/parents/legal guardian/POA. Questions invited. The patient/parents/legal guardian/POA seems to understand and agrees to proceed with anesthesia plan. Reviewed the physical assessment, medical history, allergy history and patient home medications list prior to surgery/procedure/anesthetic and documented any changes. Performed airway and anesthesia risk assessments. Anesthesia Type Anesthesia Type: General Anesthesia Focused Assessment* Temperature: 97.5 F Pulse Rate: 78 Blood Pressure: 115/86 Respiratory Rate: 16 Pulse Ox: 100 Airway Assessment Mouth opens: >3 cm Mallampati Score: II Labs Anesthesia Preop lab: CBC WBC, (4.4-11.0) 21.2 K/mm3 H 07/27/25, 10:49 RBC, (4.2-5.4) 4.78 M/mm3 07/27/25, 10:49 Hgb, (12.0-15.0) 13.5 g/dL 07/27/25, 10:49 Hct, (37-47) 40.2 % 07/27/25, 10:49 Plt Count, (150-450) 289 K/mm3 07/27/25, 10:49 CHEMISTRY Potassium, (3.3-5.1) 4.4 mmol/L 07/27/25, 10:49 Sodium, (133-145) 139 mmol/L 07/27/25, 10:49 BUN, (4-19) 13 mg/dL 07/27/25, 10:49 Creatinine, (0.70-1.20) 0.64 mg/dL L 07/27/25, 10:49 Glucose, (70-99) 128 mg/dL H 07/27/25, 10:49 TSH, (0.358-3.74) 1.39 uIU/mL 02/09/22, 12:01 COAG Pre-Assessment Diagnosis/Proposed Procedure Planned Operative Procedure(s): CYSTOSCOPY, RIGHTURETEROSCOPY, LASER LITHOTRIPSY, STONE BASKET EXTRACTION, RIGHT URETERAL STENT INSERTION Anesthesia History 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 When Was Last Pacemaker Check QUESTION #4 FULL TEXT: You/Your Family Experience fever (hyperthermia) with Anesthesia Last Oral Intake Last Oral intake: Last Oral Intake NPO since 18:00 07/29/25 06:29 Meds taken in AM with sips of Yes 07/29/25 06:29 water? Meds patient instructed to take am of surgery PONV PONV - commercial instructor supervisor: PONV - commercial instructor supervisor Female Yes 07/27/25 08:57 HX of Motion Sickness No 07/27/25 08:57 HX of N/V After Surgery No 07/27/25 08:57 Non-Smoker Yes 07/27/25 08:57 Duration of Surgery greater No 07/27/25 08:57 than 60 minutes Number of Risk Factors 2 07/27/25 08:57 PONV Score Moderate Risk 07/27/25 08:57 Height & Weight Height & Weight: Anesthesia: Height & Weight Height 5 ft 2 in 07/29/25 06:29 Weight: 55.6 kg 07/29/25 06:29 Body Mass Index (BMI) 22.4 07/29/25 06:29 Respiratory Assessment Respiratory Assessment - commercial instructor supervisor: Respiratory Tract Infection Hx - commercial instructor supervisor Hx Respiratory Tract Infection No 07/27/25 08:57 STOP Sleep Apnea STOP Sleep Apnea - commercial instructor supervisor: STOP Sleep Apnea - commercial instructor supervisor Hx Hypertension No 07/27/25 08:57 Hx Sleep Apnea No 07/27/25 08:57 CPAP No 09/21/24 15:34 BIPAP No 09/21/24 15:34 Do you snore loudly (louder No 07/27/25 08:57 than talking or can be heard Do you often feel tired/ No 07/27/25 08:57 fatigued/ sleepy during daytime? Has anyone observed you stop No 07/27/25 08:57 breathing during sleep? STOP Results Negative 07/27/25 08:57 QUESTION #5 FULL TEXT : Do you snore loudly (louder than talking or can be heard through closed doors)? 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 Specify any problems Hx of Preganancy in last 3 No 07/27/25 08:57 Months Nurse Filling Out Transfusion JZOLLINGE 07/27/25 08:57 & Questions: Date: 07/27/25 07/27/25 08:57 Time: 08:59 07/27/25 08:57 Patient unable to answer at this time (ie. confused, unrespo /Reproduction History /Reproductive History - commercial instructor supervisor: /Reproductive Hx- commercial instructor supervisor Hx Now No 07/27/25 08:57 Gestational Age (in weeks): EDC: Hx Hx Para Hx Section SAB No 07/27/25 08:57 Active Medications Active Medications: Current Medications Generic Name Dose Route Start Last Admin Trade Name Freq PRN Reason Stop Dose Admin Cefazolin Sodium 2 gm/ Sodium 110 mls @ 200 mls/hr 07/29/25 11:10 Chloride IV 07/29/25 11:42 INTRAOP ONE Lactated Ringer's 1,000 mls @ 15 mls/hr 07/29/25 06:15 07/29/25 06:40 IV 15 mls/hr .Q48H LUZMARIA Administration PFSH Medical History History of leukemia Former smoker Dyspareunia due to medical condition in female Vaginal atrophy Bladder pain Dysfunction of left eustachian tube Screening for cardiovascular condition ADD (attention deficit disorder) Flu vaccine need Menopausal hot flushes Headache Strep pharyngitis Leukocytosis Right shoulder pain Hematochezia Lymph node enlargement Tobacco abuse, in remission Adrenal hyperplasia Adrenal gland disorder Tobacco abuse Shortness of breath Atypical chest pain Alcohol use Back pain Smoker Leg cramps History of stress test Cholelithiasis Preventative health care URI (upper respiratory infection) Sorethroat Cough Limb weakness Diarrhea Shoulder pain Hemorrhoids Polycystic ovaries Heart murmur Kidney stones GI problem Home Medications ?Medication ?Instructions ?Recorded ?Last Taken ?Type cholecalciferol (vitamin D3) 50 50 mcg PO DAILY #90 caps 10/03/20 Unknown Rx mcg (2,000 unit) capsule multivitamin 1 tab PO DAILY 03/08/23 Unknown History cholestyramine (with sugar) 4 gram 4 g PO QACHS 3 months #1,134 grams 09/29/24 Unknown Rx oral powder estradiol 0.01% (0.1 mg/gram) 1 g vaginal 3XW 3 months #42.5 06/09/25 Unknown Rx vaginal cream grams lisdexamfetamine 30 mg capsule 30 mg PO QAM 30 days #30 caps 07/07/25 Unknown Rx Allergy/AdvReac Type Severity Reaction Status Date / Time Sulfa (Sulfonamide Allergy Itching Verified 07/29/25 06:27 Antibiotics) Family History Grandmother Anemia Mother Diabetes Brother Diabetes Aunt Severe allergy Unknown No problems noted. Surgical History History of colonoscopy (~2021) History of cholecystectomy History of bowel resection Status post laser lithotripsy of ureteral calculus H/O: hysterectomy removal of benign abdominal mass Social History Smoking Status: Former smoker quit date: 07/06/23 Tobacco: How many years used: 35 alcohol intake: current alcohol intake frequency: holidays/special occasions only substance use type: does not use Review of Systems (Anesthesia) ROS Narrative System reviewed and no additional complaints, except as documented.
--- NOTE | 2025-07-29 07:29 | PCM.HP.BLA ---
History and Physical Date of Admission: 07/29/25 Date of Service: 07/27/25 MR#: [id number] Acct: [id number] Name: CRISTIAN FROST Rep #: [id number] : 1970 Provider: Dr. Zuleima Salcedo MD Age/Sex: 55/F Location[place] [facility] Status: Signed Intake Vital Signs 07/07/2508:56 07/27/2510:00 Height 5 ft 2 in 5 ft 2 in Weight: 122 lb 122 lb BMI 22.3 22.3 BP 133/84 H 115/73 Blood Pressure Location Lt brachial Position Sitting Respiration 16 Pulse 98 84 Pulse Source Monitor Intake Visit Reasons: Pre Op ANGELA f/u Chief Complaint: preoperation visit Education And Training Manager Required: No Accompanied by: self Is patient in pain?: Yes (bladder pain ) Pain scale (1-10): 8 Allergies Sulfa (Sulfonamide Antibiotics) Allergy (Verified 07/27/25 10:03) Itching Medications ?Medication ?Instructions ?Recorded ?Confirmed ?Type cholecalciferol (vitamin D3) 50 50 mcg PO DAILY #90 caps 10/03/20 07/27/25 Rx mcg (2,000 unit) capsule multivitamin 1 tab PO DAILY 03/08/23 07/27/25 History cholestyramine (with sugar) 4 gram 4 g PO QACHS 3 months #1,134 grams 09/29/24 07/27/25 Rx oral powder estradiol 0.01% (0.1 mg/gram) 1 g vaginal 3XW 3 months #42.5 06/09/25 07/27/25 Rx vaginal cream grams lisdexamfetamine 30 mg capsule 30 mg PO QAM 30 days #30 caps 07/07/25 07/27/25 Rx Nurse's Note: bladder hurts all the time. [facility] Medical History History of leukemia Former smoker Dyspareunia due to medical condition in female Vaginal atrophy Bladder pain Dysfunction of left eustachian tube Screening for cardiovascular condition ADD (attention deficit disorder) Flu vaccine need Menopausal hot flushes Headache Strep pharyngitis Leukocytosis Right shoulder pain Hematochezia Lymph node enlargement Tobacco abuse, in remission Adrenal hyperplasia Adrenal gland disorder Tobacco abuse Shortness of breath Atypical chest pain Alcohol use Back pain Smoker Leg cramps History of stress test Cholelithiasis Preventative health care URI (upper respiratory infection) Sorethroat Cough Limb weakness Diarrhea Shoulder pain Hemorrhoids Polycystic ovaries Heart murmur Kidney stones GI problem Surgical History History of colonoscopy (~2021) History of cholecystectomy History of bowel resection Status post laser lithotripsy of ureteral calculus H/O: hysterectomy removal of benign abdominal mass Family History Grandmother Anemia Mother Diabetes Brother Diabetes Aunt Severe allergy Unknown No problems noted. Social History Smoking Status: Former smoker quit date: 07/06/23 Tobacco: How many years used: 35 alcohol intake: current alcohol intake frequency: holidays/special occasions only substance use type: does not use HPI HPI Urology Chief Complaint: preoperation visit Details: CRISTIAN FROST, is a 55 F. The patient is here for preoperative history and physical prior to cystoscopy with right ureteroscopy, laser lithotripsy, stone basket extraction, right ureteral stent insertion. There are no new symptoms since the last visit. She does not do well with stents and is essentially begging to only have one if it is necessary. The procedure, recovery and expectations were explained. The risks, benefits and alternatives were discussed, including but not limited to, the risks of anesthesia, bleeding, infection, injury, pain and the need for further intervention. We have discussed the risk of exposure to and/or potential harm posed by the COVID-19 virus with having a surgery/procedure at this time. A joint decision was made at this time to proceed with the scheduled surgery/procedure as indicated on the consent form. ROS Const Constitutional: No chills, fatigue, fever(s), headache(s), night sweats, weakness, weight change, abnormal sleep pattern or change in appetite Eyes Eyes: No change in vision ENT ENT: No headache(s) or dry mouth Resp Respiratory: No cough, chest congestion, shortness of breath or wheezing Cardio Cardiology: Positive for other (No chest pain.); No shortness of breath, irregular heart rhythm or lightheadedness Gastro GI: Positive for abdominal pain (suprapubic) and other (No nausea.); No change in bowel habits, constipation, diarrhea or vomiting Musc Musculoskeletal: No abnormal gait Skin Skin: No yellowing of the eye, lesions, itchy eyes, rash or skin ulcer Neuro Neurology: No abnormal gait, confusion, dizziness, weakness, headache(s) or memory loss Psych Psychiatric: No abnormal sleep pattern, No change in appetite, No confusion and No memory loss Endo Endocrine: No fatigue, increased thirst/drinking or weight change Aller/Imm Allergy/Immunologic: No itchy eyes or wheezing David/Lymp Hematologic/Lymphatic: No easy bleeding, easy bruising or enlarged lymph nodes Exam Const General: cooperative, healthy appearing, comfortable and no acute distress HENMT Head: normocephalic and atraumatic Ears: hearing grossly normal bilaterally and external ears normal Nose: external nose normal Eyes General: appearance normal, both eyes and all related structures Neck Neck: normal visual inspection and trachea midline Chest Chest palpation & inspection: normal inspection of the chest Resp Effort & Inspection: normal respiratory effort, able to speak in complete sentences and symmetric chest movement Cardio Rate: regular rate GI Inspection: normal to inspection Palpation: soft and nontender General: CVA tenderness on the right Skin General: no rashes or lesions noted Neuro General: patient alert, patient awake, patient oriented x3 and CN's II-XI intact bilaterally Extrem General: normal to inspection Psych Appearance: grossly normal and well kempt Mental Status: mental status grossly normal Results POC Urinalysis w/Micro Office Urine Color ? Last Edit by Elisabeth Rivera on 07/27/25 10:11 Office Urine Clarity ? Last Edit by Elisabeth Rivera on 07/27/25 10:11 Office Urine Glucose Negative Last Edit by Elisabeth Rivera on 07/27/25 10:11 Office Urine Ketones Negative Last Edit by Elisabeth Rivera on 07/27/25 10:11 Office Urine Bilirubin Negative Last Edit by Elisabeth Rivera on 07/27/25 10:11 Office Urine Urobilinogen 0.2 mg/dL Last Edit by Elisabeth Rivera on 07/27/25 10:11 Off Ur Spec Matthews 1.010 Last Edit by Elisabeth Rivera on 07/27/25 10:11 Office Urine pH 5.5 Last Edit by Elisabeth Rivera on 07/27/25 10:11 Office Urine Protein Negative Last Edit by Elisabeth Rivera on 07/27/25 10:11 Office Urine Blood Trace Last Edit by Elisabeth Rivera on 07/27/25 10:11 Office Urine Blood Hemolyzed Negative Last Edit by Elisabeth Rivera on 07/27/25 10:11 Office Urine Nitrate Negative Last Edit by Elisabeth Rivera on 07/27/25 10:11 Off Ur Leukocytes Negatve Last Edit by Elisabeth Rivera on 07/27/25 10:11 Off Ur WBC Microscopic ? Last Edit by Elisabeth Rivera on 07/27/25 10:11 Off Ur RBC Microscopic ? Last Edit by Elisabeth Rivera on 07/27/25 10:11 Off Ur Bacteria Microscopic ? Last Edit by Elisabeth Rivera on 07/27/25 10:11 Coding Level of Care Code Off vis,est,level 4 Diagnoses Renal and ureteric calculus N20.2 Hydronephrosis N13.30 Abdominal pain R10.9 Assessment and Plan Assessment and Plan (1) Renal and ureteric calculus: Status: Acute (2) Hydronephrosis: Status: Acute (3) Abdominal pain: Status: Acute Orders: Orders POC UA Automated w/Microscopy Today N20.0 - Calculus of kidney Plan urine culture today proceed with intervention as scheduled will evaluate for stent at surgery, will leave 4.5Fr stent 07/27/25 1030 <Electronically signed by Zuleima Salcedo MD> Date Zuleima Salcedo MD
--- NOTE | 2025-07-29 07:30 | CALC_PTH ---
PATIENT: CRISTIAN FROST LOC: [facility] [place] U#:[id number] AGE/SX: 55/F ROOM: RE07/29/[address]: Dr. Zuleima Salcedo MD : 1970 BED: DIS: 07/29/2025 SPEC #: [id number] RECD: 07/29/25 09:15 STATUS: MEL RIZO #: [id number] JUAN: 07/29/25 07:[address]: Zuleiam Salcedo DEPT: SURGICAL PATHOLOGY RECD BY: Kecia Rosen ENTERED: 07/29/25 10:03 SP TYPE: Calculi OTHR DR: Dr. Jacki Larose MD Tissues: A - CALCULI Procedures: Surgery Specimen Level I HEADER OPERATION: Cysto, right ureteroscopy, laser litho, stone basket extraction PRE-OP DIAGNOSIS: Renal and ureteric calculus, hydronephrosis, abdominal pain TISSUE SUBMITTED: A- Right ureteral stone GROSS DIAGNOSIS A. Ureter, right, calculi: Calculi (gross examination only) -sent for stone analysis COMMENT The calculus is submitted in its entirety for chemical stone analysis. The results from this study will be reported separately. GROSS DESCRIPTION A. Received fresh labeled the patient's name and date of . Designated as right ureteral stone are 3 harris to light brown irregular calculi, 0.2 cm to 0.3 cm. No sections are submitted. The specimen is for gross examination only. The specimen is sent for stone analysis. ME 07/29/2025 CPT:97096
[2025-07-29] MEDS: Lactated Ringers 1,000 ML 1000 ML IV (07:36)
[2025-07-29] MEDS: Cefazolin 1 GM/5 ML Vial 2 GM IV (07:36)
[2025-07-29] MEDS: Midazolam 2 MG/2 ML Syringe IV (07:38)
--- NOTE | 2025-07-29 07:43 | DCINST_ITS ---
Discharge Instructions Diet Discharge Diet: No restrictions Activity Discharge Activity: Return to Normal Activity Dressing / Incision Call your doctor if you observe: Fever of 101 or Higher, Inability to urinate and Inability to have a bowel movement Follow Up Care Please Follow Up With: Zuleima Salcedo MD Test Results: Test results from this visit will be discussed in further detail at your follow- up appointment, if applicable. Discharge Plan Admission Attending Provider: Zuleima Salcedo Primary Care Provider: Jacki Larose Instructions Print Language: Namibian Discharge Orders/Prescriptions Prescriptions: New oxycodone-acetaminophen 5-325 mg tablet 1 tab PO Q8H PRN (Reason: pain) 3 Days Qty: 10 0RF cephalexin 500 mg capsule 500 mg PO Q12 3 Days Qty: 6 0RF phenazopyridine 200 mg tablet 200 mg PO TID PRN (Reason: pain) Qty: 30 3RF ondansetron 4 mg tablet,disintegrating 4 mg PO Q8H PRN (Reason: nausea and vomiting) Qty: 10 0RF Continued multivitamin Tablet 1 tab PO DAILY lisdexamfetamine 30 mg capsule 30 mg PO QAM 30 Days Qty: 30 0RF estradiol 0.01 % (0.1 mg/gram) cream 1 g vaginal 3XW 90 Days Qty: 42.5 3RF cholecalciferol (vitamin D3) 50 mcg (2,000 unit) capsule 50 mcg PO DAILY Qty: 90 3RF cholestyramine (with sugar) 4 gram powder 4 g PO QACHS 90 Days Qty: 1134 3RF Rx Instructions: no meds 1 hr before/4-6 hr after dose Referrals / Follow Up: Jacki Larose MD [Primary Care Provider, Internal Medicine] Disposition Disposition (needs filled in before D/C Order can be placed): Home, Self Care
[2025-07-29] MEDS: Lidocaine 1% (5 ml sdv) 5 ML Vial IV (07:44)
[2025-07-29] MEDS: fentaNYL 100 MCG/2 ML Ampul IV (08:12)
--- NOTE | 2025-07-29 08:23 | PCM.POST.ANE ---
Anesthesia: Postop Eval I Current Vital Signs Temperature: 97.4 F Pulse Rate: 76 Blood Pressure: 137/67 Respiratory Rate: 16 Pulse Ox: 98 Oxygen Delivery Method: Room Air Assessment Airway patent: Yes Spontaneous unlabored respirations: Yes Mental status: Awake and Calm nausea: No Vomiting: No Anesthesia Complication: No Fluid Hydration Crystalloid volume administer (ml): 800 Total IV fluid infused: 800 Progress Note Anesthesia document: Postop Eval 1 completed: Yes
--- NOTE | 2025-07-29 08:34 | PCM.OPRPT ---
Urology Urology: [facility] Operative Report (Standard) Operative Information Date of Procedure: 07/29/25 Pre-Operative Diagnosis: Right renal and ureteral calculi, hydronephrosis Post-Operative Diagnosis: Same Surgery/Procedure Performed: Cystoscopy, right ureteroscopy, thulium laser lithotripsy, stone basket extraction sample dye mixer: No Type of Anesthesia: General RN Documented Start/Stop Times: Operation Date: 07/29/25 07:30 Case Time Into Pre-Op 07/29/25 06:11 Out of Pre-Op 07/29/25 07:32 Anesthesia Start 07/29/25 07:36 Into Room 07/29/25 07:36 Procedure Start 07/29/25 07:50 Procedure End 07/29/25 08:13 Anesthesia End 07/29/25 08:18 Out of Room 07/29/25 08:18 Into Recovery 07/29/25 08:25 Procedure Start Time: 07:50 Procedure Stop Time: 08:13 Select all DRAINS/GRAFTS/IMPLANTS that apply: None Estimated Blood Loss: <5cc Specimen collected: Yes Description of specimen(s) removed: Right renal and ureteral stone fragments Description of surgery: The patient is a 55-year-old female with a history of stones to presented to the office with pain and was found to have a distal right ureteral stone along with right kidney stones. She presents for surgical intervention today. Informed consent was obtained. She does not do well with ureteral stents and pleaded her case for intervention without a stent. The patient was taken to the operating room and placed on the operating room table. Anesthesia monitored the head, neck, airway, IV access and vital signs throughout the case. Once anesthesia was appropriately administered she was placed into dorsolithotomy position and was prepped and draped in usual sterile fashion. The cystoscope was inserted through the urethra under direct visualization into the urinary bladder. The bladder mucosa was visualized in its entirety. The only abnormality identified was a edematous right ureteral orifice. 2 separate 0.035 Glidewire's were passed through the ureteral orifice on the right side all the way into the renal pelvis is seen on fluoroscopy. A semirigid ureteroscope was used to gently cannulate the distal ureter where the stone was easily observed. It was broken into multiple small pieces that were removed with a basket. There was no difficulty with this and no evidence of injury. Using a flexible ureteroscope over one of the Glidewire's, access was then obtained to the renal pelvis where 2 small 1 mm stones were identified and a 3 to 4 mm stone was seen. The larger stone was grasped with a basket and removed. There was direct visualization of the ureter on exiting. There was no evidence of injury or significant edema. The decision was made to leave the patient without a ureteral stent. She was awakened and taken to the recovery room in good condition. Surgical Findings: Distal right ureteral calculus, 3 mm renal calculus Complications Complications: No Admit VTE Documentation VTE Present on Admission: Yes VTE Mechan Device Prophylaxis: SCD's VTE Pharm Prophylaxis ordered?: Yes
--- NOTE | 2025-07-29 09:39 | POSTOPAN2_ITS ---
Anesthesia Postop Eval I Sum Postop Eval Completion status Anesthesia document: Postop Eval 1 completed: Yes Anesthesia Postop Eval I Summary Anesthesia Postop Eval I Summary: Anesthesia Postop Eval I: Assessment Summary Airway patent Yes 07/29/25 08:24 [email or web address] Spontaneous unlabored Yes 07/29/25 08:24 [email or web address] [email or web address] respirations Mental status Awake,Calm 07/29/25 08:24 [email or web address] nausea No 07/29/25 08:24 [email or web address] Vomiting No 07/29/25 08:24 [email or web address] Anesthesia Postop Eval I: Fluid Summary Crystalloid volume administer 800 07/29/25 08:24 [email or web address] (ml) Colloids volume administered ( ml) Blood Product volume administered (ml) Total IV fluid infused 800 07/29/25 08:24 [email or web address] Anesthesia Postop Eval I: Summary Notes Anesthesia Complication No 07/29/25 08:24 [email or web address] Anesthesia Complication Comment: Post-operative progress note Anesthesia: Postop Eval II Evaluation Mental status: Awake Pain Level: 0 nausea: No Vomiting: No
--- NOTE | 2025-07-29 09:39 | PCM.POSTANE2 ---
Anesthesia Postop Eval I Sum Postop Eval Completion status Anesthesia document: Postop Eval 1 completed: Yes Anesthesia Postop Eval I Summary Anesthesia Postop Eval I Summary: Anesthesia Postop Eval I: Assessment Summary Airway patent Yes 07/29/25 08:24 [email or web address] Spontaneous unlabored Yes 07/29/25 08:24 [email or web address] respirations Mental status Awake,Calm 07/29/25 08:24 [email or web address] nausea No 07/29/25 08:24 [email or web address] Vomiting No 07/29/25 08:24 [email or web address] Anesthesia Postop Eval I: Fluid Summary Crystalloid volume administer 800 07/29/25 08:24 [email or web address] (ml) Colloids volume administered ( ml) Blood Product volume administered (ml) Total IV fluid infused 800 07/29/25 08:24 [email or web address] Anesthesia Postop Eval I: Summary Notes Anesthesia Complication No 07/29/25 08:24 [email or web address] Anesthesia Complication Comment: Post-operative progress note Anesthesia: Postop Eval II Evaluation Mental status: Awake Pain Level: 0 nausea: No Vomiting: No
== END 2025-07-29 09:40 | disposition home or self-care (01) ==
LOC: SDC 06:01 → AC 06:01
PROVIDERS: PCP Internal Medicine; Referring Provider Urology; Visit Provider Urology
PROC: (CPT 52353; principal; 2025-07-29 07:15)
DX: N13.2 Hydronephrosis with renal and ureteral calculous obstruction (principal); Z87.891 Personal history of nicotine dependence
CPT/HCPCS: 52353; 00873; 36415; 76000; 80048; 82360; 85027; 88300; C1769; J2405

== ENCOUNTER → 2025-09-08 | Outpatient (CLI) | payer OTHER, SELFPAY ==
--- NOTE | 2025-09-08 07:13 | CT_ITS ---
PROCEDURE: SOFT TISSUE NECK WITH CONTRAST 09/08/2025 REASON FOR EXAM: CLL TECHNIQUE: Procedure Code: CTNEW Modality: CT Procedure: SOFT TISSUE NECK WITH CONTRAST CONTRAST: Isovue 370 VOLUME: 100 mL One or more dose reduction techniques were used (e.g., Automated exposure control, adjustment of the mA and/or kV according to patient size, use of iterative reconstruction technique). RADIATION DOSE SUMMARY: CTDlvol: - mGy DLP: - mGycm COMPARISON: CT neck 12/15/2021. FINDINGS: Airway: Mildly enlarged adenoids and lingual tonsils coiling mild narrowing of the oropharynx. Salivary glands: The parotid glands, submandibular glands, thyroid gland are unremarkable. Lymph nodes: Worsening newly enlarged cervical lymph node with the largest at the left level II A. measuring 1.5 x 0.7 x 2.2 cm. Thyroid: A subcentimeter cyst in the right thyroid lobe. No follow-up is recommended. Vasculature: Patent. Orbits: Unremarkable. Paranasal sinuses and mastoids: Clear. Lung apices: Clear. Upper mediastinum: Unremarkable. Bones: No acute bony abnormalities. CT/Soft Tissue Neck WITH Contrast IMPRESSION: Compared to CT scan 12/15/2019, enlarged neck lymph nodes consistent with lymph adenopathy. Reading Location: [id number]
--- NOTE | 2025-09-08 07:13 | CT_ITS ---
PROCEDURE: CT CHEST, ABD, PEL W/CONTRAST 09/08/2025 REASON FOR EXAM: CLL,ABDOMINAL LYMPHADENOPATHY-IV ONLY TECHNIQUE: Chest, abdomen and pelvis CT with intravenous contrast. Coronal and Sagittal reconstruction series were provided. One or more dose reduction techniques were used (e.g., Automated exposure control, adjustment of the mA and/or kV according to patient size, use of iterative reconstruction technique. PATIENT PREPARATION: Per protocol ORAL CONTRAST TYPE: None. Delete at CONTRAST: Isovue 370 VOLUME: 90mL RADIATION DOSE SUMMARY: CTDlvol: 10 mGy DLP: 1017.52 mGycm COMPARISON: Prior study dated June 09, 2025. FINDINGS: CT CHEST: Hardware: None Lymph nodes: Slightly enlarged bilateral axillary lymph nodes slightly more prominent on the left side. Central fatty notch seen most likely benign. Heart and Vasculature: The heart is nonenlarged. No evidence of coronary artery calcification. Lungs and Airways: The lungs are clear. No infiltrate or mass lesion is present. Pleura: No pleural effusion. Bones: Degenerative changes of the thoracic spine. CT ABDOMEN/PELVIS: Liver: Normal size. No mass. Gallbladder: Surgically absent. Spleen: Borderline splenomegaly. Pancreas: Normal size without evidence of mass surrounding inflammation or ductal dilation. Adrenals: Left adrenal nodule consistent with an adenoma. This measures 15 mm. Kidneys: Stable 1.5 cm cyst in the lower pole of the left kidney. Punctate calculus is seen in the upper pole calyx of the right kidney. Bladder: Unremarkable Reproductive Organs: Unremarkable Bowel: Stable postsurgical changes in the right hemicolon with the anastomosis. No bowel obstruction. Appendix: Not seen. Lymph nodes: Unremarkable. Vasculature: The abdominal aorta and IVC are normal. Peritoneum / Retroperitoneum: Unremarkable Bones: Unremarkable CT/CT Chest, Abd, Pel w/Contrast IMPRESSION: Slightly enlarged lymph nodes in both axilla with fatty hilum suggestive of gregor ign hyperplasia. Stable left renal cyst. Punctate calculus in the upper pole calyx of the right kidney. No evidence of ureteral obstruction. Stable postoperative changes in the right hemicolon. Reading Location: [id number]
== END | disposition home or self-care (01) ==
LOC: CT 07:11
PROVIDERS: PCP Internal Medicine; Referring Provider Internal Medicine Medical Oncology; Visit Provider Internal Medicine Medical Oncology
DX: C91.10 Chronic lymphocytic leukemia of B-cell type not having achieved remission (principal); R59.0 Localized enlarged lymph nodes
CPT/HCPCS: 70491; 71260; 74177; Q9967